=== PATIENT | female | born 1950 | race Asian ===

== ENCOUNTER → 2021-09-05 09:50 | Outpatient (CLI) | payer OTHER, SELFPAY ==
--- NOTE | 2021-09-05 | DI.MG.S_ITS ---
BILATERAL DIGITAL SCREENING MAMMOGRAM 3D/2D WITH CAD: 09/05/2021 CLINICAL: Routine screening. Comparison is made to exams dated: 10/03/2016 mammogram, 01/13/2020 mammogram, and 01/01/2018 mammogram - out side. The tissue of both breasts is extremely dense, which lowers the sensitivity of mammography. Current study was also evaluated with a Computer Aided Detection (CAD) system. No significant masses, calcifications, or other findings are seen in either breast. There has been no significant interval change. IMPRESSION: NEGATIVE There is no mammographic evidence of malignancy. A 1 year screening mammogram is recommended. This exam was interpreted at Station ID: [id number]. NOTE: For mammograms, a report in lay terms will be sent to the patient. Approximately 15% of breast malignancies will not be visualized mammographically. In the management of a palpable breast mass, a negative mammogram must not discourage biopsy of a clinically suspicious lesion. Electronically Signed By: Narciso botello/shirley:09/05/2021 12:41:30 letter sent: Normal Exam ACR BI-RADS Category 1: Negative [id number]
== END ==
PROVIDERS: PCP Family Medicine; Referring Provider Family Medicine; Visit Provider Family Medicine
DX: Z12.31 Encounter for screening mammogram for malignant neoplasm of breast (principal)
CPT/HCPCS: 77063; 77067

== ENCOUNTER → 2022-04-11 11:57 | Outpatient (CLI) | payer OTHER, SELFPAY ==
--- NOTE | 2022-04-11 | DI.RAD.S_ITS ---
PROCEDURE: XR CERVICAL SPINE 2V OR 3V INDICATIONS: neck pain TECHNIQUE: 3 view(s) of the cervical spine were acquired. COMPARISON: None. FINDINGS: Bones: No fractures or dislocations to the C7-T1 level. Degenerative endplate changes and loss of disc height at C5-6 level are seen. Mild degenerative endplate changes at C4-5 and C6-7 levels also seen. The lateral masses of C1 appear intact on the odontoid view. No suspicious bony lesions. Soft tissues: No prevertebral soft tissue swelling. 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 No fracture or dislocation. Dictated by: Huan Aaron M.D. on 04/11/2022 at 13:13 Approved by: Huan Aaron M.D. on 04/11/2022 at 13:13
== END ==
PROVIDERS: PCP Family Medicine; Referring Provider Family Medicine; Visit Provider Family Medicine
DX: G44.209 Tension-type headache, unspecified, not intractable (principal); M50.322 Other cervical disc degeneration at C5-C6 level
CPT/HCPCS: 72040

== ENCOUNTER → 2022-12-05 13:07 | Outpatient (CLI) | payer OTHER, SELFPAY ==
--- NOTE | 2022-12-05 | DI.MG.S_ITS ---
BILATERAL DIGITAL SCREENING MAMMOGRAM 3D/2D WITH CAD: 12/05/2022 CLINICAL: Routine screening. Comparison is made to exams dated: 09/05/2021 mammogram - [facility], 01/13/2020 mammogram, and 01/01/2018 mammogram - out side. Both breasts are extremely dense, which lowers the sensitivity of mammography (category d />75% glandular tissue). Current study was also evaluated with a Computer Aided Detection (CAD) system. No significant masses, calcifications, or other findings are seen in either breast. There has been no significant interval change. IMPRESSION: NEGATIVE There is no mammographic evidence of malignancy. A 1 year screening mammogram is recommended. Based on the Tyrer Cuzick model (a risk assessment model) the patient's lifetime risk is 12.2% and her 10 year risk is 7.8%. According to the ACR, ACS, and NCCN guidelines, an annual breast MRI exam along with mammogram is recommended if the patient's lifetime risk is 20% or greater. This exam was interpreted at Station ID: [id number]. NOTE: For mammograms, a report in lay terms will be sent to the patient. Approximately 15% of breast malignancies will not be visualized mammographically. In the management of a palpable breast mass, a negative mammogram must not discourage biopsy of a clinically suspicious lesion. Electronically Signed By: Gilberto aparicio/shirley:12/05/2022 17:50:55 letter sent: Normal Exam ACR BI-RADS Category 1: Negative [id number]
== END ==
PROVIDERS: PCP Family Medicine; Referring Provider Family Medicine; Visit Provider Family Medicine
DX: Z12.31 Encounter for screening mammogram for malignant neoplasm of breast (principal)
CPT/HCPCS: 77063; 77067

== ENCOUNTER → 2023-05-03 | Outpatient (CLI) | payer OTHER, SELFPAY ==
--- NOTE | 2023-05-03 12:38 | DI.RAD.S_ITS ---
Bone Density Report Name: RICARDO ZAMORA Age: 72 Sex: Female Ethnicity: Date of : 1950 Indication: postmenopausal; screening for osteoporosis; parental hip fracture; Referring Provider: SHAW ZUNIGA Study: Bone densitometry was performed. Exam Date: May 03, 2023 Accession number: [id number] Bone Density: Region BMD T-score Z-score Classification AP Spine(L1-L4) 0.999 -0.4 1.8 Normal Femoral Neck (Left) 0.676 -1.6 0.3 Osteopenia Total Hip (Left) 0.833 -0.9 0.7 Normal Femoral Neck (Right) 0.671 -1.6 0.3 Osteopenia Total Hip (Right) 0.805 -1.1 0.5 Osteopenia Total Hip Mean 0.819 -1.0 0.6 Normal World Health Organization criteria for BMD impression classify patients as: Normal (T-score at or above -1.0), Osteopenia (T-score between -1.0 and -2.5), or Osteoporosis (T-score at or below -2.5). 10-year Fracture Risk(1): Major Osteoporotic Fracture 17% Hip Fracture 4.6% Reported Risk Factors: [place] (), Neck BMD=0.671, BMI=26.5, parental fracture (1) FRAX(R) Version 3.08. Fracture probability calculated for an untreated patient. Fracture probability may be lower if the patient has received treatment. Impression: The patient has low bone mass, based on the Left Femoral Neck T-score. The patient has an estimated ten-year risk of hip fracture of 4.6% and an estimated ten-year risk of major fracture of 17%, based on the WHO FRAX algorithm. The patient has risk factors, including: parental hip fracture. Discussion: BONE DENSITY IS LOW AT ONE OR MORE SKELETAL SITES. THE PATIENT'S BMD AND CLINICAL RISK FACTORS CONTRIBUTE TO THIS PATIENT'S INCREASED RISK OF FRACTURE. This patient's lowest T-score is low at one or more skeletal sites. It meets the World Health Organization's (WHO) criteria for low bone mass (T-score between -1.0 and -2.5). The patient's 10-year risk of hip fracture as calculated by FRAX exceeds the threshold where pharmacological therapy is recommended by the National Osteoporosis Foundation (NOF). However, all treatment decisions require clinical judgment and consideration of individual patient factors, including patient preferences, comorbidities, previous drug use, risk factors not captured in the FRAX model (e.g., frailty, falls, vitamin D deficiency, increased bone turnover, interval significant decline in bone density) and possible under or overestimation of fracture risk by FRAX. The patient should follow a healthful lifestyle (good nutrition with adequate calcium and vitamin D, and appropriate weight-bearing exercise). Follow-Up: Consider a repeat BMD and Vertebral Fracture Assessment (VFA) exam in 2 years or sooner if medically necessary, to reassess this patient's status. Reported by: MAGALI DODGE M.D. on 05/03/2023 1:39:00 PM.
== END ==
LOC: RAD 12:38
PROVIDERS: PCP Family Medicine; Referring Provider Family Medicine; Visit Provider Family Medicine
DX: Z78.0 Asymptomatic menopausal state (principal); M85.852 Other specified disorders of bone density and structure, left thigh
CPT/HCPCS: 77080

== ENCOUNTER → 2023-07-01 16:16 | Outpatient (CLI) | payer OTHER, SELFPAY ==
--- NOTE | 2023-07-01 | DI.RAD.S_ITS ---
PROCEDURE: XR CERVICAL SPINE 2V OR 3V INDICATIONS: NECK PAIN TECHNIQUE: 3 view(s) of the cervical spine were acquired. COMPARISON: [facility], CR, XR CERVICAL SPINE 2V OR 3V, 04/11/2022, 12:02. FINDINGS: Bones: No fractures or dislocations to the T1 level. The lateral masses of C1 appear intact on the odontoid view. No suspicious bony lesions. Mild cervical spondylosis with mid cervical facet arthropathy. There is also mild disc height loss and uncovertebral joint hypertrophy at C5-C6. Findings are not significantly changed. Soft tissues: No prevertebral soft tissue swelling. IMPRESSION: No significant change. Mild cervical spondylitic change. Dictated by: Gerald Yee M.D. on 07/01/2023 at 17:25 Approved by: Gerald Yee M.D. on 07/01/2023 at 17:26
== END ==
PROVIDERS: PCP Family Medicine; Referring Provider Family Medicine; Visit Provider Family Medicine
DX: M47.812 Spondylosis without myelopathy or radiculopathy, cervical region (principal)
CPT/HCPCS: 72040

== ENCOUNTER → 2023-07-29 19:01 | Outpatient (CLI) | payer OTHER, SELFPAY | PROVIDERS: PCP Family Medicine; Visit Provider Nurse Practitioner Family | DX: R35.0 Frequency of micturition (principal) | CPT/HCPCS: 87077; 87086; 87186 ==

== ENCOUNTER → 2024-02-12 10:51 | Outpatient (CLI) | payer OTHER, SELFPAY ==
--- NOTE | 2024-02-12 10:52 | DI.MG.S_ITS ---
BILATERAL DIGITAL SCREENING MAMMOGRAM 3D/2D WITH CAD: 02/12/2024 CLINICAL: Routine screening. Comparison is made to exams dated: 12/05/2022 mammogram, 09/05/2021 mammogram - [facility], 01/13/2020 mammogram, 01/01/2018 mammogram, and 10/25/2016 mammogram - out side. The breasts are extremely dense, which lowers the sensitivity of mammography (category d />75% glandular tissue). Current study was also evaluated with a Computer Aided Detection (CAD) system. No significant masses, calcifications, or other findings are seen in either breast. There has been no significant interval change. IMPRESSION: NEGATIVE There is no mammographic evidence of malignancy. A 1 year screening mammogram is recommended. Based on the Tyrer Cuzick model (a risk assessment model) the patient's lifetime risk is 10.9% and her 10 year risk is 8.2%. According to the ACR, ACS, and NCCN guidelines, an annual breast MRI exam along with mammogram is recommended if the patient's lifetime risk is 20% or greater. This exam was interpreted at Station ID: [id number]. NOTE: For mammograms, a report in lay terms will be sent to the patient. Approximately 15% of breast malignancies will not be visualized mammographically. In the management of a palpable breast mass, a negative mammogram must not discourage biopsy of a clinically suspicious lesion. Electronically Signed By: Windy Carrion M.D., Ph.D. cali/shirley:02/13/2024 09:25:41 letter sent: Normal Exam ACR BI-RADS Category 1: Negative
== END ==
PROVIDERS: PCP Family Medicine; Referring Provider Family Medicine; Visit Provider Family Medicine
DX: Z12.31 Encounter for screening mammogram for malignant neoplasm of breast (principal); R92.343 Mammographic extreme density, bilateral breasts
CPT/HCPCS: 77063; 77067

== ENCOUNTER → 2024-04-22 13:17 | Outpatient (CLI) | payer MEDICARE, SELFPAY ==
--- NOTE | 2024-04-22 13:24 | DI.RAD.S_ITS ---
PROCEDURE: XR KNEE RT 1TO2V INDICATIONS: Pain in LT Shoulder/Pain in RT Knee/Osteoarthritis TECHNIQUE: 2 views of the knee were acquired. COMPARISON: None. FINDINGS: Bones: No fractures or dislocations. Minimal degenerative changes. No suspicious bony lesions. Soft tissues: Probable small joint effusion. No suspicious soft tissue calcifications. IMPRESSION: Minimal degenerative changes at the right knee appreciated. If clinically indicated MRI could be considered for further evaluation. Dictated by: Gilberto Man M.D. on 04/23/2024 at 9:55 Approved by: Gilberto Man M.D. on 04/23/2024 at 9:56
--- NOTE | 2024-04-22 13:24 | DI.RAD.S_ITS ---
PROCEDURE: XR SHOULDER LT MIN 2V INDICATIONS: Pain in LT Shoulder/Pain in RT Knee/Osteoarthritis TECHNIQUE: 3 views of the shoulder were acquired. COMPARISON: None. FINDINGS: Bones: No fractures or dislocations. Moderate degenerative changes at the acromioclavicular joint. Mild degenerative changes seen at the glenohumeral joint. No suspicious bony lesions. Visualized ribs appear intact. Soft tissues: No suspicious soft tissue calcifications. IMPRESSION: Mild moderate left shoulder DJD. Dictated by: Gilberto Man M.D. on 04/23/2024 at 9:53 Approved by: Gilberto Man M.D. on 04/23/2024 at 9:54
== END ==
PROVIDERS: PCP Student in an Organized Health Care Education/Training Program; Referring Provider Student in an Organized Health Care Education/Training Program; Visit Provider Student in an Organized Health Care Education/Training Program
DX: M19.012 Primary osteoarthritis, left shoulder; M25.461 Effusion, right knee; M25.512 Pain in left shoulder; M25.561 Pain in right knee
CPT/HCPCS: 73030; 73560

== ENCOUNTER 2024-06-19 13:45 | Outpatient (RCR) | payer MEDICARE, SELFPAY ==
--- NOTE | 2024-05-18 15:55 | PT.OIE ---
Current Diagnoses Osteoarthritis of knee, unspecified (05/18/24) Unspecified osteoarthritis, unspecified site (05/18/24) Pain in left shoulder (05/18/24) Pain in right knee (05/18/24) Stiffness of left shoulder, not elsewhere classified (05/18/24) Stiffness of right knee, not elsewhere classified (05/18/24) Difficulty in walking, not elsewhere classified (05/18/24) Other abnormalities of gait and mobility (05/18/24) Weakness (05/18/24) Visit Care Team Role Provider Type Reyes Pichardo MD Attending Provider Non-Staff Family Provider Primary Care Provider Referring Provider Specialty: General Surgery Address: [address] [place] [address], [id number] Email: Physical Therapy Initial Evaluation PT-OP-A Visit Information Start: 05/15/24 15:54 Freq: Status: Active Protocol: Document 05/18/24 09:46 NM (Rec: 05/18/24 11:15 NM [id number]) Out-Patient Physical Therapy Visit Information Visit Information Visit Type Initial Evaluation Visit Start Time 09:48 Visit Stop Time 10:30 Visit Number 1 Evaluation Information Evaluation Date 05/18/24 Precautions Precautions osteopenia PT-OP-B Current Condition Start: 05/15/24 15:54 Freq: Status: Active Protocol: Document 05/18/24 09:46 NM (Rec: 05/18/24 11:15 NM [id number]) Current Condition History of Current Condition Onset Date March 2024 Current Complaints pain in R knee History of Current Condition Pt reports that she woke up after with L shoulder pain and R knee pain. Reports got the flu on day; reports pain worse with illness but has improved overall since no longer sick. Minimal knee pain prior to illness in March. She reports that she has less pain with L shoulder with exercise, better. She does report that tingling/numbness from shoulder into her hand, specifically her thumb and the 2nd figner. Gets in bed sleeping, usually on L shoulder. No changes to temperature or sensation, or strength. Hx of L frozen shoulder (2009); no other injuries or recurrences since that episode. Pt reports that she always gets a tingling in that L shoulder after illness/shot since she had frozen shoulder. Occasional neck pain, headaches. She reports R knee hurts as well States that it will occasionally locks or feels like it stiffens (denies catching, locking without being able to move knee, or knee giving out), worse with sitting for long time or inactivity. Since started limping, she reports that her R hip starts to hurt too. Walks 1 mi ea morning and evening. Has been wearing a patellar brace but unsure if she should; she has hx of patellar pain on same side since 2013 (with hula). Trouble with carrying heavy things (15-20#), getting up/ off floor, kneeling, getting in/out of car. Worse in morning then late evening. No numbness/tingling. Treatment Goals Patient/Caregiver Goals pt more concerned about knee/ shoulder PT-OP-C Subjective Start: 05/15/24 15:54 Freq: Status: Active Protocol: Document 05/18/24 09:46 NM (Rec: 05/18/24 11:15 NM [id number]) OP-PT Subjective Patient Comments Patient Comments Pt agrees to participate in PT evaluation Patient Questionnaires Lower Extremity Functional Scale LEFS Score 38/80 Quick Dash- Upper Extremity Quick Dash UE Score 27.3% OP-PT Pain Assessment Location L shoulder Pain Location Details under L scapula Intensity 2 Scale Used Numeric (0 - 10) Description Aching Description- Other prn numbness/tingling Radiating Location to elbow and wrist; lateral arm, hand Pain Aggravating Factors Position,ADL's Pain Alleviating Factors Cold,Heat,Exercise R knee Pain Location Details medial knee near joint line Intensity 5 Scale Used Numeric (0 - 10) Description Aching,Dull Radiating Location none Variations/Patterns worse in am, then again in pm; better with warm up Pain Aggravating Factors Position,Exercise,Standing, Sitting,Walking Other Pain Aggravating Factors down stairs; sleeping; STS Pain Alleviating Factors Cold,Heat,Position Other Pain Alleviating Factors sleeps on back c/ leg crossed; movement Home Pain Medication Use Pain Medications Used was on tumeric, movefree PT-OP-E Functional Tests Start: 05/15/24 15:54 Freq: Status: Active Protocol: Document 05/18/24 09:46 NM (Rec: 05/18/24 11:15 NM [id number]) Functional Tests Tommyey's Scratch Test Action 1- Left post cuff Action 1- Right post cuff Action 2- Left T5 Action 2- Right T4 Action 3- Left T8 Action 3- Right T8 Five Times Sit to Stand Test Score 14 Comments inc knee pain with reps PT-OP-F Manual Assessment Start: 05/15/24 15:54 Freq: Status: Active Protocol: Document 05/18/24 09:46 NM (Rec: 05/18/24 11:15 NM [id number]) Manual Assessments Soft Tissue Assessment Soft Tissue Mobility Assessment Restrictions of cervicothoracic paraspinals, pec, rotator cuff, periscapulars Restrictions of R adductors, quad, hip flexors, and hamstrings Joint Mobility Assessment Joint Mobility Assessment L shoulder: AROM and PROM similar, limitations at scapular and GHJ. cervical spine restrictions on L side likely also reduce muscle length R knee: decreased patellar mobility compared to contralateral limb, pain with flex<>ext transition, no pain with overpressure into extension but mildly painful overpressure into flexion PT-OP-G Mobility & Gait Start: 05/15/24 15:54 Freq: Status: Active Protocol: Document 05/18/24 09:46 NM (Rec: 05/18/24 11:15 NM [id number]) OP Gait Assessment Gait Gait Assistance Required: Independent Distance (Feet) 150 Assistive Devices Assistive Device None Gait Deviations General Gait Pattern Antalgic Comments Gait Comments decreased trunk rotation. slight limp with R stance PT-OP-J Posture/Palpation/Skin Start: 05/15/24 15:54 Freq: Status: Active Protocol: Document 05/18/24 09:46 NM (Rec: 05/18/24 11:15 NM [id number]) Posture Evaluation Position Standing Head/C-Spine Posture Forward Head Shoulder Posture (L) Rounded,(R) Rounded,(L) Forward,(R) Forward Scapula Posture (L) Retracted,(L) Elevated Pelvis Posture Anteriorly Tilted Weight Distribution Weight Shifted Left Hip Posture (L) Externally Rotated,(R) Externally Rotated Knee Posture (L) Genu Valgus,(R) Genu Valgus Palpation Assessment Location L shoulder Palpation Details tenderness along L scapular border tightness and restriction of periscapulars, levator scapula , trapezius, pec, posterior cuff R knee Palpation Details Tenderness along medial joint line, medial knee above and below joint line, distal adductors no tenderness along pes anserine, patellar or quad tendon, patella mild tenderness along posterior hip near SIJ PT-OP-K Range of Motion Start: 05/15/24 15:54 Freq: Status: Active Protocol: Document 05/18/24 09:46 NM (Rec: 05/18/24 11:15 NM [id number]) Cervical Spine Range of Motion Cervical Spine Active Degrees Flexion 30 Extension 30 Rotation Left 45 Rotation Right 55 Lateral Flexion Left 20 Lateral Flexion Right 20 Comments crepitus, stiffness, no scapular pain L rot inc shoulder blade pain Shoulder Goniometric Range of Motion Shoulder Right Flexion 160 Extension 40 Abduction 170 External Rotation at 90 degrees 80 Abduction Left Flexion 150 Extension 50 Abduction 170 External Rotation at 90 degrees 75 Abduction Comments compensated with trunk extension Knee Goniometric Range of Motion Knee Right Flexion Active (degrees) 122 Extension Active (degrees) 5 Comments pain with flex and ext Left Flexion Active (degrees) 130 Extension Active (degrees) 2 PT-OP-L Special Tests Start: 05/15/24 15:54 Freq: Status: Active Protocol: Document 05/18/24 09:46 NM (Rec: 05/18/24 11:15 NM [id number]) Special Tests Cervical Spine Special Tests Traction Test Results - Spurling's Test Test Results - Knee Special Tests Patellar Grind Test Test Results + Lauryn's Test Results - Alisa Test Test Results - Varus Test Results - Comments 0 and 25 deg Valgus Test Results - Comments 0 and 25 deg Neural Special Tests- Upper Body Upper Limb Tension Test Test Results + Comments median n. PT-OP-M Strength Start: 05/15/24 15:54 Freq: Status: Active Protocol: Document 05/18/24 09:46 NM (Rec: 05/18/24 11:15 NM [id number]) Shoulder Strength Shoulder Manual Muscle Testing Right Flexion 4+ Good+ Abduction (C5) 4+ Good+ External Rotation 4+ Good+ Internal Rotation 4+ Good+ Left Flexion 4 Good Abduction (C5) 4 Good External Rotation 4 Good Internal Rotation 4 Good Comments no pain with resisted testing Hip Strength Hip Manual Muscle Testing Right Flexion (L2) 4 Good Extension (S1) 4 Good Abduction 4 Good Adduction 4 Good Left Flexion (L2) 4+ Good+ Extension (S1) 4 Good Abduction 4 Good Adduction 4+ Good+ Knee Strength Knee Manual Muscle Testing Right Flexion (S2) 4- Good- Extension (L3) 4- Good- Comments pain with resisted ext and flex Left Flexion (S2) 4+ Good+ Extension (L3) 4+ Good+ PT-OP-Q Treatments Start: 05/15/24 15:54 Freq: Status: Active Protocol: Document 05/18/24 09:46 NM (Rec: 05/18/24 11:15 NM [id number]) Therapeutic Exercises Supine Exercises Straight Leg Raise Supine Exercise Name HEP Side right Equipment Used hooklying Reps/Minutes 10 Comments cued for quad set; pain free; maintains good contraction quad set Supine Exercise Name HEP Side right Equipment Used towel roll under knee Reps/Minutes 15x3 Comments cued submaximal, pain free; ankle lifts off w/ reps heel slide Supine Exercise Name HEP Side right Equipment Used pillow case on foot Reps/Minutes 10 Other Exercises pec stretch Other Exercise Name 90/90 at door- HEP Side bilateral Equipment Used staggered stance Reps/Minutes 60 Comments pain free; cued for form Self-Care/Home Management Treatment Education Other Education Recommended against use of knee brace at this time, but pt may benefit from knee sleeve for increased tactile input and pain management during exercise without limiting motion PT-OP-T Assessment and Plan Start: 05/15/24 15:54 Freq: Status: Active Protocol: Document 05/18/24 09:46 NM (Rec: 05/18/24 11:15 NM [id number]) Physical Therapy Assessment Rehab Potential Rehabilitation Potential Good Evaluation Complexity Number of Personal Factors/Comorbidities 3 or More Number of Body Systems Impaired 3 Clinical Presentation at Evaluation Stable Impairments Impairments Activity Tolerance,Balance, Functional Activities, Functional Mobility,Gait, Integument,Pain,Posture,ROM, Sensation,Soft Tissue Mobility ,Strength,Transfers,Vestibular Other Concerns Age Related Concerns PMH: arthritis, headaches, neck pain, osteopenia, thyroid disorder. Hx of adhesive capsulitis L shoulder Barriers to Rehabilitation Pt is wanting to focus primarily on treating her R knee over her L shoulder Goals Four Impairment limitations in L shoulder flexion AROM 150 deg, CS rot L 45 deg Short Term Goal (STG) Pt will increase L shoulder flexion >150 deg AROM in order to improve ability to reach, lift, and carry objects during ADLs. STG Duration 07/03/24 Shelter Goal (LTG) If appropriate, pt will increase B cervical spine rotation >55 deg in order to improve visual scanning for driving and decreased soft tissue limitations for L shoulder ROM LTG Duration 07/17/24 Three Impairment pain with squats, STS, kneeling, floor transfers Short Term Goal (STG) Pt will increase R knee strength globally to at least 4/5 MMT and R hip strength globally ot 4+5/MMT to improve ability to perform transfers STG Duration 07/03/24 Contract Serviceman Goal (LTG) Pt will report <3/10 R knee pain with floor transfers with or without UE assist and/or kneeling in order to be able to perform housework LTG Duration 07/17/24 Two Impairment pain with ambulation; limitations in R knee/hip strength Shelter Goal (LTG) Pt will be able to ambulate daily with R knee pain <3/10 with minimal deviations LTG Duration 07/17/24 One Impairment R knee ROM limited: 122 deg flex, lacking 5 deg ext Contract Serviceman Goal (LTG) Pt will increase R knee flexion AROM >125 deg and R knee extension to lacking 2 deg or less in order to improve ROM for transfers and gait LTG Duration 07/17/24 Assessment Summary Assessment Pt is a 73 y.o. presenting with R knee pain and L shoulder pain beginning in March 2024 following an illness with the flu. Pt reports that symptoms have improved overall but but L scapular pain is ongoing along with minimal changes in R knee pain. Hx of adhesive capsulitis to L shoulder and recent onset of numbness/ tingling into thumb and 2nd finger. Shoulder symptoms are reproduced with median n. tension testing and cervical spine ROM; no reproduction with spurling's test or reduction with traction. Pt has several soft tissue restrictions and postural restrictions that further influence symptoms. Pt is wanting to focus on her R knee . Pt has limitations in both R knee ROM and strength, in addition to pain especially with palpation of medial joint line compared to L knee. No knee ligamentous instability with testing. However, limitations in R knee joint and patellar mobility. Impairments in ROM, strength, transfers, gait, stairs, activity tolerance, and ability to perform ADLs/IALs. PT educated pt on exam findings and plan of care. Pt would benefit from skilled PT for improved symptom and pain management in addition to improved ADL/IADLs and activity tolerance. Physical Therapy Plan Frequency and Duration Frequency of Treatment 2x/Week Duration of treatment (weeks) 8 Plan of Care Start Date 05/18/24 Plan of Care End Date 07/17/24 Therapeutic Interventions Therapeutic Interventions Balance Training,Canalithic Repositioning,Gait Training, Home Exercise Program,Joint Mobilizations,Manual Therapy, Neuromuscular Re-education, Orthotic/Prosthetic Management ,Patient/Caregiver Education, Self-Care/Home Management, Sensory Integration,Soft Tissue Mobilization,Taping, Therapeutic Activities, Therapeutic Exercises, Vestibular Rehabilitation Modalities Cold Pack/Ice Massage,Electric Stimulation,Hot Packs, Ultrasound,Vasopneumatic Devices Other Therapeutic Interventions No grade IV mobilizations due to osteopenia Next Visit Focus/Plan Next Note Type Treatment Note Next Visit Plan review HEP R knee: knee mobilizations, STM, HS stretch, quad stretch, TFL stretch, TKE with band, side steps vs hip abd/ext standing, partial squat L shoulder: cervical spine baldo, retraction, scapular mobilizations, GHJ mobilizations, STM, periscapular activation, TS rot and ext
--- NOTE | 2024-05-20 13:23 | PT.OTN ---
Current Diagnoses Osteoarthritis of knee, unspecified (05/20/24) Unspecified osteoarthritis, unspecified site (05/20/24) Pain in left shoulder (05/20/24) Pain in right knee (05/20/24) Stiffness of left shoulder, not elsewhere classified (05/20/24) Stiffness of right knee, not elsewhere classified (05/20/24) Difficulty in walking, not elsewhere classified (05/20/24) Other abnormalities of gait and mobility (05/20/24) Weakness (05/20/24) Physical Therapy Treatment Note PT-OP-A Visit Information Start: 05/15/24 15:54 Freq: Status: Active Protocol: Document 05/20/24 11:36 NM (Rec: 05/20/24 12:21 NM [id number]) Out-Patient Physical Therapy Visit Information Visit Information Visit Type Treatment Note Visit Start Time 11:37 Visit Stop Time 12:15 Visit Number 2 Evaluation Information Evaluation Date 05/18/24 Precautions Precautions osteopenia PT-OP-B Current Condition Start: 05/15/24 15:54 Freq: Status: Active Protocol: Document 05/18/24 09:46 NM (Rec: 05/18/24 11:15 NM [id number]) Current Condition History of Current Condition Onset Date March 2024 Current Complaints pain in R knee History of Current Condition Pt reports that she woke up after [place] with L shoulder pain and R knee pain. Reports got the flu on day; reports pain worse with illness but has improved overall since no longer sick. Minimal knee pain prior to illness in March. She reports that she has less pain with L shoulder with exercise, better. She does report that tingling/numbness from shoulder into her hand, specifically her thumb and the 2nd figner. Gets in bed sleeping, usually on L shoulder. No changes to temperature or sensation, or strength. Hx of L frozen shoulder (2009); no other injuries or recurrences since that episode. Pt reports that she always gets a tingling in that L shoulder after illness/shot since she had frozen shoulder. Occasional neck pain, headaches. She reports R knee hurts as well States that it will occasionally locks or feels like it stiffens (denies catching, locking without being able to move knee, or knee giving out), worse with sitting for long time or inactivity. Since started limping, she reports that her R hip starts to hurt too. Walks 1 mi ea morning and evening. Has been wearing a patellar brace but unsure if she should; she has hx of patellar pain on same side since 2013 (with hula). Trouble with carrying heavy things (15-20#), getting up/ off floor, kneeling, getting in/out of car. Worse in morning then late evening. No numbness/tingling. Treatment Goals Patient/Caregiver Goals pt more concerned about knee/ shoulder PT-OP-C Subjective Start: 05/15/24 15:54 Freq: Status: Active Protocol: Document 05/20/24 11:36 NM (Rec: 05/20/24 12:21 NM [id number]) OP-PT Subjective Patient Comments Patient Comments Pt reports that she tried her exercises, reports tight afterward but states that do make give her pain. She reports 2/10 pain in sitting, 5/10 with transition to movement. PT-OP-E Functional Tests Start: 05/15/24 15:54 Freq: Status: Active Protocol: Document 05/18/24 09:46 NM (Rec: 05/18/24 11:15 NM [id number]) Functional Tests Apley's Scratch Test Action 1- Left post cuff Action 1- Right post cuff Action 2- Left T5 Action 2- Right T4 Action 3- Left T8 Action 3- Right T8 Five Times Sit to Stand Test Score 14 Comments inc knee pain with reps PT-OP-F Manual Assessment Start: 05/15/24 15:54 Freq: Status: Active Protocol: Document 05/18/24 09:46 NM (Rec: 05/18/24 11:15 NM [id number]) Manual Assessments Soft Tissue Assessment Soft Tissue Mobility Assessment Restrictions of cervicothoracic paraspinals, pec, rotator cuff, periscapulars Restrictions of R adductors, quad, hip flexors, and hamstrings Joint Mobility Assessment Joint Mobility Assessment L shoulder: AROM and PROM similar, limitations at scapular and GHJ. cervical spine restrictions on L side likely also reduce muscle length R knee: decreased patellar mobility compared to contralateral limb, pain with flex<>ext transition, no pain with overpressure into extension but mildly painful overpressure into flexion PT-OP-G Mobility & Gait Start: 05/15/24 15:54 Freq: Status: Active Protocol: Document 05/18/24 09:46 NM (Rec: 05/18/24 11:15 NM [id number]) OP Gait Assessment Gait Gait Assistance Required: Independent Distance (Feet) 150 Assistive Devices Assistive Device None Gait Deviations General Gait Pattern Antalgic Comments Gait Comments decreased trunk rotation. slight limp with R stance PT-OP-J Posture/Palpation/Skin Start: 05/15/24 15:54 Freq: Status: Active Protocol: Document 05/18/24 09:46 NM (Rec: 05/18/24 11:15 NM [id number]) Posture Evaluation Position Standing Head/C-Spine Posture Forward Head Shoulder Posture (L) Rounded,(R) Rounded,(L) Forward,(R) Forward Scapula Posture (L) Retracted,(L) Elevated Pelvis Posture Anteriorly Tilted Weight Distribution Weight Shifted Left Hip Posture (L) Externally Rotated,(R) Externally Rotated Knee Posture (L) Genu Valgus,(R) Genu Valgus Palpation Assessment Location L shoulder Palpation Details tenderness along L scapular border tightness and restriction of periscapulars, levator scapula , trapezius, pec, posterior cuff R knee Palpation Details Tenderness along medial joint line, medial knee above and below joint line, distal adductors no tenderness along pes anserine, patellar or quad tendon, patella mild tenderness along posterior hip near SIJ PT-OP-K Range of Motion Start: 05/15/24 15:54 Freq: Status: Active Protocol: Document 05/18/24 09:46 NM (Rec: 05/18/24 11:15 NM [id number]) Cervical Spine Range of Motion Cervical Spine Active Degrees Flexion 30 Extension 30 Rotation Left 45 Rotation Right 55 Lateral Flexion Left 20 Lateral Flexion Right 20 Comments crepitus, stiffness, no scapular pain L rot inc shoulder blade pain Shoulder Goniometric Range of Motion Shoulder Right Flexion 160 Extension 40 Abduction 170 External Rotation at 90 degrees 80 Abduction Left Flexion 150 Extension 50 Abduction 170 External Rotation at 90 degrees 75 Abduction Comments compensated with trunk extension Knee Goniometric Range of Motion Knee Right Flexion Active (degrees) 122 Extension Active (degrees) 5 Comments pain with flex and ext Left Flexion Active (degrees) 130 Extension Active (degrees) 2 PT-OP-L Special Tests Start: 05/15/24 15:54 Freq: Status: Active Protocol: Document 05/18/24 09:46 NM (Rec: 05/18/24 11:15 NM [id number]) Special Tests Cervical Spine Special Tests Traction Test Results - Spurling's Test Test Results - Knee Special Tests Patellar Grind Test Test Results + Lauryn's Test Results - Alisa Test Test Results - Varus Test Results - Comments 0 and 25 deg Valgus Test Results - Comments 0 and 25 deg Neural Special Tests- Upper Body Upper Limb Tension Test Test Results + Comments median n. PT-OP-M Strength Start: 05/15/24 15:54 Freq: Status: Active Protocol: Document 05/18/24 09:46 NM (Rec: 05/18/24 11:15 NM [id number]) Shoulder Strength Shoulder Manual Muscle Testing Right Flexion 4+ Good+ Abduction (C5) 4+ Good+ External Rotation 4+ Good+ Internal Rotation 4+ Good+ Left Flexion 4 Good Abduction (C5) 4 Good External Rotation 4 Good Internal Rotation 4 Good Comments no pain with resisted testing Hip Strength Hip Manual Muscle Testing Right Flexion (L2) 4 Good Extension (S1) 4 Good Abduction 4 Good Adduction 4 Good Left Flexion (L2) 4+ Good+ Extension (S1) 4 Good Abduction 4 Good Adduction 4+ Good+ Knee Strength Knee Manual Muscle Testing Right Flexion (S2) 4- Good- Extension (L3) 4- Good- Comments pain with resisted ext and flex Left Flexion (S2) 4+ Good+ Extension (L3) 4+ Good+ PT-OP-Q Treatments Start: 05/15/24 15:54 Freq: Status: Active Protocol: Document 05/20/24 11:36 NM (Rec: 05/20/24 12:21 NM [id number]) Therapeutic Exercises Supine Exercises mahamed stretch Supine Exercise Name HEP- modified Side bilateral Reps/Minutes 60 ea Comments good stretch; edu to perform off end of bed vs EOB figure 4 stretch Supine Exercise Name trialed in PT Side bilateral Reps/Minutes 30 ea Comments tightness medial knee R, pain pes anserine towel gapping mobilization Supine Exercise Name knee flexion- HEP Side left Equipment Used towel Reps/Minutes 10 Comments no pain heel slide Supine Exercise Name HEP review Side right Resistance AROM Reps/Minutes 10 Comments post manual; 130 deg but medial knee tightness Standing Exercises TKE Standing Exercise Name c/ ball at wall- HEP Side right Equipment Used orange ball Reps/Minutes 2x10 x 3 Comments pain free; trialed band but d/ c d/t pain side stepping Standing Exercise Name trialed Side bilateral Resistance level 1 band thighs Reps/Minutes 10 ft ea Comments reports mild pain at knee c/ exercise Manual Therapy Treatment Consent Patient gave verbal consent for manual Yes treatment Soft Tissue Mobilization R knee Body Location pes anserine, hip flexors, quad, calf, HS Comments Tenderness at medial knee, sharmila pes anserine. Joint Mobilizations R knee Joint patellar, tibiofemoral Direction med/lat, inf; PA and AP c/ slight distraction Reps/Duration 2x30 ea Comments improved ROM to 130 deg flex post manual. monitored for pain. none with PA/AP mobilization PT-OP-T Assessment and Plan Start: 05/15/24 15:54 Freq: Status: Active Protocol: Document 05/20/24 11:36 NM (Rec: 05/20/24 12:21 NM [id number]) Physical Therapy Assessment Goals Four Impairment limitations in L shoulder flexion AROM 150 deg, CS rot L 45 deg Short Term Goal (STG) Pt will increase L shoulder flexion >150 deg AROM in order to improve ability to reach, lift, and carry objects during ADLs. STG Duration 07/03/24 Clinical Program Consultant Goal (LTG) If appropriate, pt will increase B cervical spine rotation >55 deg in order to improve visual scanning for driving and decreased soft tissue limitations for L shoulder ROM LTG Duration 07/17/24 Three Impairment pain with squats, STS, kneeling, floor transfers Short Term Goal (STG) Pt will increase R knee strength globally to at least 4/5 MMT and R hip strength globally ot 4+5/MMT to improve ability to perform transfers STG Duration 07/03/24 Group Home Goal (LTG) Pt will report <3/10 R knee pain with floor transfers with or without UE assist and/or kneeling in order to be able to perform housework LTG Duration 07/17/24 Two Impairment pain with ambulation; limitations in R knee/hip strength Group Home Goal (LTG) Pt will be able to ambulate daily with R knee pain <3/10 with minimal deviations LTG Duration 07/17/24 One Impairment R knee ROM limited: 122 deg flex, lacking 5 deg ext Clinical Program Consultant Goal (LTG) Pt will increase R knee flexion AROM >125 deg and R knee extension to lacking 2 deg or less in order to improve ROM for transfers and gait LTG Duration 07/17/24 Assessment Summary Assessment Pt reports that she has increased tightnes along R medial knee at end of session. Reports no increased pain. She has 130 deg R knee flexion post manual treatment. Initiated manual treatment to improve soft tissue restrictions and joint mobility. Good carryover for knee flexion with towel gapping. Trialed TKE with band but pt has increased discomfort at medial knee; improved with ball at wall. Minimal cueing for form to limit hip compensations. Poor tolerance for side steps, will trial sidelying vs standing hip strengthening in future. Trialed hip stretching to improve global mobility as has restrictions at pes anserine. Pt would continue to benefit from skilled PT for progressive R knee mobility to improve ability to perform ADLs/IADLs. Physical Therapy Plan Frequency and Duration Frequency of Treatment 2x/Week Duration of treatment (weeks) 8 Plan of Care Start Date 05/18/24 Plan of Care End Date 07/17/24 Therapeutic Interventions Therapeutic Interventions Balance Training,Canalithic Repositioning,Gait Training, Home Exercise Program,Joint Mobilizations,Manual Therapy, Neuromuscular Re-education, Orthotic/Prosthetic Management ,Patient/Caregiver Education, Self-Care/Home Management, Sensory Integration,Soft Tissue Mobilization,Taping, Therapeutic Activities, Therapeutic Exercises, Vestibular Rehabilitation Modalities Cold Pack/Ice Massage,Electric Stimulation,Hot Packs, Ultrasound,Vasopneumatic Devices Other Therapeutic Interventions No grade IV mobilizations due to osteopenia Next Visit Focus/Plan Next Note Type Treatment Note Next Visit Plan trial standing abd w/o band vs s/l abd for strength R knee: knee mobilizations, STM, HS stretch, quad stretch, TFL stretch, TKE with band, side steps vs hip abd/ext standing, partial squat L shoulder: cervical spine baldo, retraction, scapular mobilizations, GHJ mobilizations, STM, periscapular activation, TS rot and ext
--- NOTE | 2024-05-25 12:34 | PT.OTN ---
Current Diagnoses Osteoarthritis of knee, unspecified (05/25/24) Unspecified osteoarthritis, unspecified site (05/25/24) Pain in left shoulder (05/25/24) Pain in right knee (05/25/24) Stiffness of left shoulder, not elsewhere classified (05/25/24) Stiffness of right knee, not elsewhere classified (05/25/24) Difficulty in walking, not elsewhere classified (05/25/24) Other abnormalities of gait and mobility (05/25/24) Weakness (05/25/24) Physical Therapy Treatment Note PT-OP-A Visit Information Start: 05/15/24 15:54 Freq: Status: Active Protocol: Document 05/25/24 10:38 AB (Rec: 05/25/24 12:33 AB [id number]) Out-Patient Physical Therapy Visit Information Visit Information Visit Type Treatment Note Visit Start Time 10:48 Visit Stop Time 11:33 Visit Number 3 Number of TRANSFORMATION COACH Visits 1 Evaluation Information Evaluation Date 05/18/24 Precautions Precautions osteopenia PT-OP-B Current Condition Start: 05/15/24 15:54 Freq: Status: Active Protocol: Document 05/18/24 09:46 NM (Rec: 05/18/24 11:15 NM [id number]) Current Condition History of Current Condition Onset Date March 2024 Current Complaints pain in R knee History of Current Condition Pt reports that she woke up after [place] with L shoulder pain and R knee pain. Reports got the flu on day; reports pain worse with illness but has improved overall since no longer sick. Minimal knee pain prior to illness in March. She reports that she has less pain with L shoulder with exercise, better. She does report that tingling/numbness from shoulder into her hand, specifically her thumb and the 2nd figner. Gets in bed sleeping, usually on L shoulder. No changes to temperature or sensation, or strength. Hx of L frozen shoulder (2009); no other injuries or recurrences since that episode. Pt reports that she always gets a tingling in that L shoulder after illness/shot since she had frozen shoulder. Occasional neck pain, headaches. She reports R knee hurts as well States that it will occasionally locks or feels like it stiffens (denies catching, locking without being able to move knee, or knee giving out), worse with sitting for long time or inactivity. Since started limping, she reports that her R hip starts to hurt too. Walks 1 mi ea morning and evening. Has been wearing a patellar brace but unsure if she should; she has hx of patellar pain on same side since 2013 (with hula). Trouble with carrying heavy things (15-20#), getting up/ off floor, kneeling, getting in/out of car. Worse in morning then late evening. No numbness/tingling. Treatment Goals Patient/Caregiver Goals pt more concerned about knee/ shoulder PT-OP-C Subjective Start: 05/15/24 15:54 Freq: Status: Active Protocol: Document 05/25/24 10:38 AB (Rec: 05/25/24 12:33 AB [id number]) OP-PT Subjective Patient Comments Patient Comments Patient reports knee feels less locked when she stands up , shoulder barely bothers at all. Patient reports right knee pain 2/10 start of session, reports it is painful when lying in bend and when she when she gets up to walk, once she gets going it feels better. AROM L shoulder flexion 148 deg , right knee 0 to 131 deg start of session. PT-OP-E Functional Tests Start: 05/15/24 15:54 Freq: Status: Active Protocol: Document 05/18/24 09:46 NM (Rec: 05/18/24 11:15 NM [id number]) Functional Tests Apley's Scratch Test Action 1- Left post cuff Action 1- Right post cuff Action 2- Left T5 Action 2- Right T4 Action 3- Left T8 Action 3- Right T8 Five Times Sit to Stand Test Score 14 Comments inc knee pain with reps PT-OP-F Manual Assessment Start: 05/15/24 15:54 Freq: Status: Active Protocol: Document 05/18/24 09:46 NM (Rec: 05/18/24 11:15 NM [id number]) Manual Assessments Soft Tissue Assessment Soft Tissue Mobility Assessment Restrictions of cervicothoracic paraspinals, pec, rotator cuff, periscapulars Restrictions of R adductors, quad, hip flexors, and hamstrings Joint Mobility Assessment Joint Mobility Assessment L shoulder: AROM and PROM similar, limitations at scapular and GHJ. cervical spine restrictions on L side likely also reduce muscle length R knee: decreased patellar mobility compared to contralateral limb, pain with flex<>ext transition, no pain with overpressure into extension but mildly painful overpressure into flexion PT-OP-G Mobility & Gait Start: 05/15/24 15:54 Freq: Status: Active Protocol: Document 05/18/24 09:46 NM (Rec: 05/18/24 11:15 NM [id number]) OP Gait Assessment Gait Gait Assistance Required: Independent Distance (Feet) 150 Assistive Devices Assistive Device None Gait Deviations General Gait Pattern Antalgic Comments Gait Comments decreased trunk rotation. slight limp with R stance PT-OP-J Posture/Palpation/Skin Start: 05/15/24 15:54 Freq: Status: Active Protocol: Document 05/18/24 09:46 NM (Rec: 05/18/24 11:15 NM [id number]) Posture Evaluation Position Standing Head/C-Spine Posture Forward Head Shoulder Posture (L) Rounded,(R) Rounded,(L) Forward,(R) Forward Scapula Posture (L) Retracted,(L) Elevated Pelvis Posture Anteriorly Tilted Weight Distribution Weight Shifted Left Hip Posture (L) Externally Rotated,(R) Externally Rotated Knee Posture (L) Genu Valgus,(R) Genu Valgus Palpation Assessment Location L shoulder Palpation Details tenderness along L scapular border tightness and restriction of periscapulars, levator scapula , trapezius, pec, posterior cuff R knee Palpation Details Tenderness along medial joint line, medial knee above and below joint line, distal adductors no tenderness along pes anserine, patellar or quad tendon, patella mild tenderness along posterior hip near SIJ PT-OP-K Range of Motion Start: 05/15/24 15:54 Freq: Status: Active Protocol: Document 05/18/24 09:46 NM (Rec: 05/18/24 11:15 NM [id number]) Cervical Spine Range of Motion Cervical Spine Active Degrees Flexion 30 Extension 30 Rotation Left 45 Rotation Right 55 Lateral Flexion Left 20 Lateral Flexion Right 20 Comments crepitus, stiffness, no scapular pain L rot inc shoulder blade pain Shoulder Goniometric Range of Motion Shoulder Right Flexion 160 Extension 40 Abduction 170 External Rotation at 90 degrees 80 Abduction Left Flexion 150 Extension 50 Abduction 170 External Rotation at 90 degrees 75 Abduction Comments compensated with trunk extension Knee Goniometric Range of Motion Knee Right Flexion Active (degrees) 122 Extension Active (degrees) 5 Comments pain with flex and ext Left Flexion Active (degrees) 130 Extension Active (degrees) 2 PT-OP-L Special Tests Start: 05/15/24 15:54 Freq: Status: Active Protocol: Document 05/18/24 09:46 NM (Rec: 05/18/24 11:15 NM [id number]) Special Tests Cervical Spine Special Tests Traction Test Results - Spurling's Test Test Results - Knee Special Tests Patellar Grind Test Test Results + Lauryn's Test Results - Alisa Test Test Results - Varus Test Results - Comments 0 and 25 deg Valgus Test Results - Comments 0 and 25 deg Neural Special Tests- Upper Body Upper Limb Tension Test Test Results + Comments median n. PT-OP-M Strength Start: 05/15/24 15:54 Freq: Status: Active Protocol: Document 05/18/24 09:46 NM (Rec: 05/18/24 11:15 NM [id number]) Shoulder Strength Shoulder Manual Muscle Testing Right Flexion 4+ Good+ Abduction (C5) 4+ Good+ External Rotation 4+ Good+ Internal Rotation 4+ Good+ Left Flexion 4 Good Abduction (C5) 4 Good External Rotation 4 Good Internal Rotation 4 Good Comments no pain with resisted testing Hip Strength Hip Manual Muscle Testing Right Flexion (L2) 4 Good Extension (S1) 4 Good Abduction 4 Good Adduction 4 Good Left Flexion (L2) 4+ Good+ Extension (S1) 4 Good Abduction 4 Good Adduction 4+ Good+ Knee Strength Knee Manual Muscle Testing Right Flexion (S2) 4- Good- Extension (L3) 4- Good- Comments pain with resisted ext and flex Left Flexion (S2) 4+ Good+ Extension (L3) 4+ Good+ PT-OP-Q Treatments Start: 05/15/24 15:54 Freq: Status: Active Protocol: Document 05/25/24 10:38 AB (Rec: 05/25/24 12:33 AB [id number]) Gym Equipment Shuttle Recovery bilateral Resistance 50 Reps/Time [id number] Therapeutic Exercises Supine Exercises Straight Leg Raise Supine Exercise Name HEP Side right Equipment Used hooklying Reps/Minutes 15 Comments cued for quad set; pain free; maintains good contraction Sidelying Exercises open book Side bilateral Reps/Minutes X8 Comments verbal and tactile cues, VC to hold 3 breaths shoulder AROM Sidelying Exercise Name 1. ER 2. abd Reps/Minutes X10 each Standing Exercises mini squat with band Side bilateral Resistance level 3 band above knees Reps/Minutes X10 X 2 Comments Shannen al and visual cues side stepping Standing Exercise Name trialed Side bilateral Reps/Minutes 10 ft ea Manual Therapy Treatment Consent Patient gave verbal consent for manual Yes treatment Soft Tissue Mobilization L shoulder Body Location pec, post cuff, periscap area, inc emph UT/levat scap Mobilization Type Cross-Friction,Rolling, Sustained Pressure Intensity/Depth Moderate Body Position Hooklying Comments and sidelying R knee Body Location pes anserine, quad Body Position Hooklying Joint Mobilizations L scapula Direction into add and dep Grade III Body Position Hooklying Reps/Duration X10 L GH Direction inf and AP Grade III Body Position Hooklying Reps/Duration 2X10 inf 3X 10 AP PT-OP-T Assessment and Plan Start: 05/15/24 15:54 Freq: Status: Active Protocol: Document 05/25/24 10:38 AB (Rec: 05/25/24 12:33 AB [id number]) Physical Therapy Assessment Goals Four Impairment limitations in L shoulder flexion AROM 150 deg, CS rot L 45 deg Short Term Goal (STG) Pt will increase L shoulder flexion >150 deg AROM in order to improve ability to reach, lift, and carry objects during ADLs. STG Duration 07/03/24 Nursing Home Goal (LTG) If appropriate, pt will increase B cervical spine rotation >55 deg in order to improve visual scanning for driving and decreased soft tissue limitations for L shoulder ROM LTG Duration 07/17/24 Three Impairment pain with squats, STS, kneeling, floor transfers Short Term Goal (STG) Pt will increase R knee strength globally to at least 4/5 MMT and R hip strength globally ot 4+5/MMT to improve ability to perform transfers STG Duration 07/03/24 Nanotechnology Engineering Technologist Goal (LTG) Pt will report <3/10 R knee pain with floor transfers with or without UE assist and/or kneeling in order to be able to perform housework LTG Duration 07/17/24 Two Impairment pain with ambulation; limitations in R knee/hip strength Nanotechnology Engineering Technologist Goal (LTG) Pt will be able to ambulate daily with R knee pain <3/10 with minimal deviations LTG Duration 07/17/24 One Impairment R knee ROM limited: 122 deg flex, lacking 5 deg ext Nanotechnology Engineering Technologist Goal (LTG) Pt will increase R knee flexion AROM >125 deg and R knee extension to lacking 2 deg or less in order to improve ROM for transfers and gait LTG Duration 07/17/24 Assessment Summary Assessment 155 deg AROM left shoulder flexion end of session, patient reports feeling great. Physical Therapy Plan Frequency and Duration Frequency of Treatment 2x/Week Duration of treatment (weeks) 8 Plan of Care Start Date 05/18/24 Plan of Care End Date 07/17/24 Next Visit Focus/Plan Next Note Type Treatment Note Next Visit Plan trial standing abd w/o band vs s/l abd for strength R knee: knee mobilizations, STM, HS stretch, quad stretch, TFL stretch, TKE with band, side steps vs hip abd/ext standing, partial squat L shoulder: cervical spine baldo, retraction, scapular mobilizations, GHJ mobilizations, STM, periscapular activation, TS rot and ext
--- NOTE | 2024-05-27 11:50 | PT.OTN ---
Current Diagnoses Osteoarthritis of knee, unspecified (05/27/24) Unspecified osteoarthritis, unspecified site (05/27/24) Pain in left shoulder (05/27/24) Pain in right knee (05/27/24) Stiffness of left shoulder, not elsewhere classified (05/27/24) Stiffness of right knee, not elsewhere classified (05/27/24) Difficulty in walking, not elsewhere classified (05/27/24) Other abnormalities of gait and mobility (05/27/24) Weakness (05/27/24) Physical Therapy Treatment Note PT-OP-A Visit Information Start: 05/15/24 15:54 Freq: Status: Active Protocol: Document 05/27/24 10:26 NM (Rec: 05/27/24 11:50 NM [id number]) Out-Patient Physical Therapy Visit Information Visit Information Visit Type Treatment Note Visit Start Time 10:47 Visit Stop Time 11:30 Visit Number 4 Number of CLAIMS EXAMINER Visits 0 Evaluation Information Evaluation Date 05/18/24 Precautions Precautions osteopenia PT-OP-B Current Condition Start: 05/15/24 15:54 Freq: Status: Active Protocol: Document 05/18/24 09:46 NM (Rec: 05/18/24 11:15 NM [id number]) Current Condition History of Current Condition Onset Date March 2024 Current Complaints pain in R knee History of Current Condition Pt reports that she woke up after Wendy with L shoulder pain and R knee pain. Reports got the flu on day; reports pain worse with illness but has improved overall since no longer sick. Minimal knee pain prior to illness in March. She reports that she has less pain with L shoulder with exercise, better. She does report that tingling/numbness from shoulder into her hand, specifically her thumb and the 2nd figner. Gets in bed sleeping, usually on L shoulder. No changes to temperature or sensation, or strength. Hx of L frozen shoulder (2009); no other injuries or recurrences since that episode. Pt reports that she always gets a tingling in that L shoulder after illness/shot since she had frozen shoulder. Occasional neck pain, headaches. She reports R knee hurts as well States that it will occasionally locks or feels like it stiffens (denies catching, locking without being able to move knee, or knee giving out), worse with sitting for long time or inactivity. Since started limping, she reports that her R hip starts to hurt too. Walks 1 mi ea morning and evening. Has been wearing a patellar brace but unsure if she should; she has hx of patellar pain on same side since 2013 (with hula). Trouble with carrying heavy things (15-20#), getting up/ off floor, kneeling, getting in/out of car. Worse in morning then late evening. No numbness/tingling. Treatment Goals Patient/Caregiver Goals pt more concerned about knee/ shoulder PT-OP-C Subjective Start: 05/15/24 15:54 Freq: Status: Active Protocol: Document 05/27/24 10:26 NM (Rec: 05/27/24 11:50 NM [id number]) OP-PT Subjective Patient Comments Patient Comments Pt reports that her shoulder is fine. She reports that her R knee is tender when she touches it, but reports doing better overall. She reports bothers her when sleeping but does not bother. PT-OP-E Functional Tests Start: 05/15/24 15:54 Freq: Status: Active Protocol: Document 05/18/24 09:46 NM (Rec: 05/18/24 11:15 NM [id number]) Functional Tests Apley's Scratch Test Action 1- Left post cuff Action 1- Right post cuff Action 2- Left T5 Action 2- Right T4 Action 3- Left T8 Action 3- Right T8 Five Times Sit to Stand Test Score 14 Comments inc knee pain with reps PT-OP-F Manual Assessment Start: 05/15/24 15:54 Freq: Status: Active Protocol: Document 05/18/24 09:46 NM (Rec: 05/18/24 11:15 NM [id number]) Manual Assessments Soft Tissue Assessment Soft Tissue Mobility Assessment Restrictions of cervicothoracic paraspinals, pec, rotator cuff, periscapulars Restrictions of R adductors, quad, hip flexors, and hamstrings Joint Mobility Assessment Joint Mobility Assessment L shoulder: AROM and PROM similar, limitations at scapular and GHJ. cervical spine restrictions on L side likely also reduce muscle length R knee: decreased patellar mobility compared to contralateral limb, pain with flex<>ext transition, no pain with overpressure into extension but mildly painful overpressure into flexion PT-OP-G Mobility & Gait Start: 05/15/24 15:54 Freq: Status: Active Protocol: Document 05/18/24 09:46 NM (Rec: 05/18/24 11:15 NM [id number]) OP Gait Assessment Gait Gait Assistance Required: Independent Distance (Feet) 150 Assistive Devices Assistive Device None Gait Deviations General Gait Pattern Antalgic Comments Gait Comments decreased trunk rotation. slight limp with R stance PT-OP-J Posture/Palpation/Skin Start: 05/15/24 15:54 Freq: Status: Active Protocol: Document 05/18/24 09:46 NM (Rec: 05/18/24 11:15 NM [id number]) Posture Evaluation Position Standing Head/C-Spine Posture Forward Head Shoulder Posture (L) Rounded,(R) Rounded,(L) Forward,(R) Forward Scapula Posture (L) Retracted,(L) Elevated Pelvis Posture Anteriorly Tilted Weight Distribution Weight Shifted Left Hip Posture (L) Externally Rotated,(R) Externally Rotated Knee Posture (L) Genu Valgus,(R) Genu Valgus Palpation Assessment Location L shoulder Palpation Details tenderness along L scapular border tightness and restriction of periscapulars, levator scapula , trapezius, pec, posterior cuff R knee Palpation Details Tenderness along medial joint line, medial knee above and below joint line, distal adductors no tenderness along pes anserine, patellar or quad tendon, patella mild tenderness along posterior hip near SIJ PT-OP-K Range of Motion Start: 05/15/24 15:54 Freq: Status: Active Protocol: Document 05/18/24 09:46 NM (Rec: 05/18/24 11:15 NM [id number]) Cervical Spine Range of Motion Cervical Spine Active Degrees Flexion 30 Extension 30 Rotation Left 45 Rotation Right 55 Lateral Flexion Left 20 Lateral Flexion Right 20 Comments crepitus, stiffness, no scapular pain L rot inc shoulder blade pain Shoulder Goniometric Range of Motion Shoulder Right Flexion 160 Extension 40 Abduction 170 External Rotation at 90 degrees 80 Abduction Left Flexion 150 Extension 50 Abduction 170 External Rotation at 90 degrees 75 Abduction Comments compensated with trunk extension Knee Goniometric Range of Motion Knee Right Flexion Active (degrees) 122 Extension Active (degrees) 5 Comments pain with flex and ext Left Flexion Active (degrees) 130 Extension Active (degrees) 2 PT-OP-L Special Tests Start: 05/15/24 15:54 Freq: Status: Active Protocol: Document 05/18/24 09:46 NM (Rec: 05/18/24 11:15 NM [id number]) Special Tests Cervical Spine Special Tests Traction Test Results - Spurling's Test Test Results - Knee Special Tests Patellar Grind Test Test Results + Lauryn's Test Results - Alisa Test Test Results - Varus Test Results - Comments 0 and 25 deg Valgus Test Results - Comments 0 and 25 deg Neural Special Tests- Upper Body Upper Limb Tension Test Test Results + Comments median n. PT-OP-M Strength Start: 05/15/24 15:54 Freq: Status: Active Protocol: Document 05/18/24 09:46 NM (Rec: 05/18/24 11:15 NM [id number]) Shoulder Strength Shoulder Manual Muscle Testing Right Flexion 4+ Good+ Abduction (C5) 4+ Good+ External Rotation 4+ Good+ Internal Rotation 4+ Good+ Left Flexion 4 Good Abduction (C5) 4 Good External Rotation 4 Good Internal Rotation 4 Good Comments no pain with resisted testing Hip Strength Hip Manual Muscle Testing Right Flexion (L2) 4 Good Extension (S1) 4 Good Abduction 4 Good Adduction 4 Good Left Flexion (L2) 4+ Good+ Extension (S1) 4 Good Abduction 4 Good Adduction 4+ Good+ Knee Strength Knee Manual Muscle Testing Right Flexion (S2) 4- Good- Extension (L3) 4- Good- Comments pain with resisted ext and flex Left Flexion (S2) 4+ Good+ Extension (L3) 4+ Good+ PT-OP-Q Treatments Start: 05/15/24 15:54 Freq: Status: Active Protocol: Document 05/27/24 10:26 NM (Rec: 05/27/24 11:50 NM [id number]) Therapeutic Exercises Standing Exercises [place] squat Standing Exercise Name trialed in PT Side bilateral Resistance level 3 [place] band Reps/Minutes 8 Comments poor tolerance; increased ant knee pain d/c hip extension Side bilateral Resistance level 1 band at thighs Equipment Used 1 hand support for balance Reps/Minutes 2x10 ea Comments good feedback; add to HEP next session hip flexion Standing Exercise Name not marching; heel taps Side bilateral Resistance level 1 band thighs Equipment Used 1 hand support for balance Reps/Minutes 2x10 ea Comments seated for energy conservation mini squat with band Standing Exercise Name reviewed in clinic Side bilateral Resistance level 3 band above knees Reps/Minutes 2x10; retest post tape c/ less pain in B knees x10 Comments verbal and visual cues for more hip hinge than knee flex; pat tendon pain side stepping Standing Exercise Name retrialed today - HEP Side bilateral Resistance AROM > level 1 band at thighs Equipment Used 1 hand support as needed Reps/Minutes 2x10 ft AROM, 3x10 ft c/ band Comments no pain; cued for squat form Manual Therapy Treatment Consent Patient gave verbal consent for manual Yes treatment Soft Tissue Mobilization R knee Body Location pes anserine, quad, adductors, HS Mobilization Type Myofascial Release,Rolling, Strumming,Sustained Pressure Body Position Hooklying Comments superficial at adductors and pes anserine, moderate at medial hamstrings especially at muscle belly and quad monitored for pain. Educated can trial grandson's percussion gun for massage; start on lowest setting and determine tolerance, then can progress intensity if tolerates well. Focus on muscle belly and tender points , but do not spend increased time on tender points. Avoid bones Taping R knee Body Location patellar tendon, patellar femoral joint Treatment Focus pain management Type of Tape Kinesio Tape Skin Inspection intact, no redness/irritation Comments 3 I strips: 1 horizontal at patellar tendon, 2 distal > proximal making X from just distal to tibial plateaus to femoral condyles; <50% stretch ea Pt educated to watch skin for redness or irritation; remove promptly if occurs. Educated to remove in 3-5 days PT-OP-T Assessment and Plan Start: 05/15/24 15:54 Freq: Status: Active Protocol: Document 05/27/24 10:26 NM (Rec: 05/27/24 11:50 NM [id number]) Physical Therapy Assessment Goals Four Impairment limitations in L shoulder flexion AROM 150 deg, CS rot L 45 deg Short Term Goal (STG) Pt will increase L shoulder flexion >150 deg AROM in order to improve ability to reach, lift, and carry objects during ADLs. STG Duration 07/03/24 Wood Inspector Goal (LTG) If appropriate, pt will increase B cervical spine rotation >55 deg in order to improve visual scanning for driving and decreased soft tissue limitations for L shoulder ROM LTG Duration 07/17/24 Three Impairment pain with squats, STS, kneeling, floor transfers Short Term Goal (STG) Pt will increase R knee strength globally to at least 4/5 MMT and R hip strength globally ot 4+5/MMT to improve ability to perform transfers STG Duration 07/03/24 Wood Inspector Goal (LTG) Pt will report <3/10 R knee pain with floor transfers with or without UE assist and/or kneeling in order to be able to perform housework LTG Duration 07/17/24 Two Impairment pain with ambulation; limitations in R knee/hip strength Correction Goal (LTG) Pt will be able to ambulate daily with R knee pain <3/10 with minimal deviations LTG Duration 07/17/24 One Impairment R knee ROM limited: 122 deg flex, lacking 5 deg ext Wood Inspector Goal (LTG) Pt will increase R knee flexion AROM >125 deg and R knee extension to lacking 2 deg or less in order to improve ROM for transfers and gait LTG Duration 07/17/24 Assessment Summary Assessment Pt responds well to progressions in therapeutic exercise with hip strengthening. Cueing needed for correct execution, but no increased pain in knees. Demos quad dominant squat, leads to increased knee pain. Reduced with hip hinge but still present; significant reduction with taping patellar tendon. Educated on use of self soft tissue mobilization to decrease patellofemoral and pes anserine pain. Pt would continue to benefit from skilled PT for progressive strengthening and mobility in order to improve functional ADLs and mobility. Physical Therapy Plan Frequency and Duration Frequency of Treatment 2x/Week Duration of treatment (weeks) 8 Plan of Care Start Date 05/18/24 Plan of Care End Date 07/17/24 Therapeutic Interventions Therapeutic Interventions Balance Training,Canalithic Repositioning,Gait Training, Home Exercise Program,Joint Mobilizations,Manual Therapy, Neuromuscular Re-education, Orthotic/Prosthetic Management ,Patient/Caregiver Education, Self-Care/Home Management, Sensory Integration,Soft Tissue Mobilization,Taping, Therapeutic Activities, Therapeutic Exercises, Vestibular Rehabilitation Modalities Cold Pack/Ice Massage,Electric Stimulation,Hot Packs, Ultrasound,Vasopneumatic Devices Other Therapeutic Interventions No grade IV mobilizations due to osteopenia Next Visit Focus/Plan Next Note Type Treatment Note Next Visit Plan Assess tolerance for tape. Can retape if desired. Add standing abd/ext/flex c/ band to HEP. Condense HEP. Leg press vs wall squat vs minisquat- address mechanics. LAQ baldo vs full ROM depending on pat pain. glute/quad strength R knee: knee mobilizations, STM, HS stretch, quad stretch, TFL stretch, TKE with band, side steps vs hip abd/ext standing, partial squat L shoulder: cervical spine baldo, retraction, scapular mobilizations, GHJ mobilizations, STM, periscapular activation, TS rot and ext
--- NOTE | 2024-06-01 15:27 | PT.OTN ---
Current Diagnoses Osteoarthritis of knee, unspecified (06/01/24) Unspecified osteoarthritis, unspecified site (06/01/24) Pain in left shoulder (06/01/24) Pain in right knee (06/01/24) Stiffness of left shoulder, not elsewhere classified (06/01/24) Stiffness of right knee, not elsewhere classified (06/01/24) Difficulty in walking, not elsewhere classified (06/01/24) Other abnormalities of gait and mobility (06/01/24) Weakness (06/01/24) Physical Therapy Treatment Note PT-OP-A Visit Information Start: 05/15/24 15:54 Freq: Status: Active Protocol: Document 06/01/24 14:33 NM (Rec: 06/01/24 15:27 NM [id number]) Out-Patient Physical Therapy Visit Information Visit Information Visit Type Treatment Note Visit Start Time 14:34 Visit Stop Time 15:15 Visit Number 5 Evaluation Information Evaluation Date 05/18/24 Precautions Precautions osteopenia PT-OP-B Current Condition Start: 05/15/24 15:54 Freq: Status: Active Protocol: Document 05/18/24 09:46 NM (Rec: 05/18/24 11:15 NM [id number]) Current Condition History of Current Condition Onset Date March 2024 Current Complaints pain in R knee History of Current Condition Pt reports that she woke up after [place] with L shoulder pain and R knee pain. Reports got the flu on day; reports pain worse with illness but has improved overall since no longer sick. Minimal knee pain prior to illness in March. She reports that she has less pain with L shoulder with exercise, better. She does report that tingling/numbness from shoulder into her hand, specifically her thumb and the 2nd figner. Gets in bed sleeping, usually on L shoulder. No changes to temperature or sensation, or strength. Hx of L frozen shoulder (2009); no other injuries or recurrences since that episode. Pt reports that she always gets a tingling in that L shoulder after illness/shot since she had frozen shoulder. Occasional neck pain, headaches. She reports R knee hurts as well States that it will occasionally locks or feels like it stiffens (denies catching, locking without being able to move knee, or knee giving out), worse with sitting for long time or inactivity. Since started limping, she reports that her R hip starts to hurt too. Walks 1 mi ea morning and evening. Has been wearing a patellar brace but unsure if she should; she has hx of patellar pain on same side since 2013 (with hula). Trouble with carrying heavy things (15-20#), getting up/ off floor, kneeling, getting in/out of car. Worse in morning then late evening. No numbness/tingling. Treatment Goals Patient/Caregiver Goals pt more concerned about knee/ shoulder PT-OP-C Subjective Start: 05/15/24 15:54 Freq: Status: Active Protocol: Document 06/01/24 14:33 NM (Rec: 06/01/24 15:27 NM [id number]) OP-PT Subjective Patient Comments Patient Comments Pt reports taping helped a lot with exercises, felt good, no rash. Pt reports that her knee does not hurt when moving , only when lying down (tender ). Reports that she is improving in her ability to get up and down, no freezing or catching Patient Reported Progress Improving PT-OP-E Functional Tests Start: 05/15/24 15:54 Freq: Status: Active Protocol: Document 05/18/24 09:46 NM (Rec: 05/18/24 11:15 NM [id number]) Functional Tests Apley's Scratch Test Action 1- Left post cuff Action 1- Right post cuff Action 2- Left T5 Action 2- Right T4 Action 3- Left T8 Action 3- Right T8 Five Times Sit to Stand Test Score 14 Comments inc knee pain with reps PT-OP-F Manual Assessment Start: 05/15/24 15:54 Freq: Status: Active Protocol: Document 05/18/24 09:46 NM (Rec: 05/18/24 11:15 NM [id number]) Manual Assessments Soft Tissue Assessment Soft Tissue Mobility Assessment Restrictions of cervicothoracic paraspinals, pec, rotator cuff, periscapulars Restrictions of R adductors, quad, hip flexors, and hamstrings Joint Mobility Assessment Joint Mobility Assessment L shoulder: AROM and PROM similar, limitations at scapular and GHJ. cervical spine restrictions on L side likely also reduce muscle length R knee: decreased patellar mobility compared to contralateral limb, pain with flex<>ext transition, no pain with overpressure into extension but mildly painful overpressure into flexion PT-OP-G Mobility & Gait Start: 05/15/24 15:54 Freq: Status: Active Protocol: Document 05/18/24 09:46 NM (Rec: 05/18/24 11:15 NM [id number]) OP Gait Assessment Gait Gait Assistance Required: Independent Distance (Feet) 150 Assistive Devices Assistive Device None Gait Deviations General Gait Pattern Antalgic Comments Gait Comments decreased trunk rotation. slight limp with R stance PT-OP-J Posture/Palpation/Skin Start: 05/15/24 15:54 Freq: Status: Active Protocol: Document 05/18/24 09:46 NM (Rec: 05/18/24 11:15 NM [id number]) Posture Evaluation Position Standing Head/C-Spine Posture Forward Head Shoulder Posture (L) Rounded,(R) Rounded,(L) Forward,(R) Forward Scapula Posture (L) Retracted,(L) Elevated Pelvis Posture Anteriorly Tilted Weight Distribution Weight Shifted Left Hip Posture (L) Externally Rotated,(R) Externally Rotated Knee Posture (L) Genu Valgus,(R) Genu Valgus Palpation Assessment Location L shoulder Palpation Details tenderness along L scapular border tightness and restriction of periscapulars, levator scapula , trapezius, pec, posterior cuff R knee Palpation Details Tenderness along medial joint line, medial knee above and below joint line, distal adductors no tenderness along pes anserine, patellar or quad tendon, patella mild tenderness along posterior hip near SIJ PT-OP-K Range of Motion Start: 05/15/24 15:54 Freq: Status: Active Protocol: Document 05/18/24 09:46 NM (Rec: 05/18/24 11:15 NM [id number]) Cervical Spine Range of Motion Cervical Spine Active Degrees Flexion 30 Extension 30 Rotation Left 45 Rotation Right 55 Lateral Flexion Left 20 Lateral Flexion Right 20 Comments crepitus, stiffness, no scapular pain L rot inc shoulder blade pain Shoulder Goniometric Range of Motion Shoulder Right Flexion 160 Extension 40 Abduction 170 External Rotation at 90 degrees 80 Abduction Left Flexion 150 Extension 50 Abduction 170 External Rotation at 90 degrees 75 Abduction Comments compensated with trunk extension Knee Goniometric Range of Motion Knee Right Flexion Active (degrees) 122 Extension Active (degrees) 5 Comments pain with flex and ext Left Flexion Active (degrees) 130 Extension Active (degrees) 2 PT-OP-L Special Tests Start: 05/15/24 15:54 Freq: Status: Active Protocol: Document 05/18/24 09:46 NM (Rec: 05/18/24 11:15 NM [id number]) Special Tests Cervical Spine Special Tests Traction Test Results - Spurling's Test Test Results - Knee Special Tests Patellar Grind Test Test Results + Lauryn's Test Results - Alisa Test Test Results - Varus Test Results - Comments 0 and 25 deg Valgus Test Results - Comments 0 and 25 deg Neural Special Tests- Upper Body Upper Limb Tension Test Test Results + Comments median n. PT-OP-M Strength Start: 05/15/24 15:54 Freq: Status: Active Protocol: Document 05/18/24 09:46 NM (Rec: 05/18/24 11:15 NM [id number]) Shoulder Strength Shoulder Manual Muscle Testing Right Flexion 4+ Good+ Abduction (C5) 4+ Good+ External Rotation 4+ Good+ Internal Rotation 4+ Good+ Left Flexion 4 Good Abduction (C5) 4 Good External Rotation 4 Good Internal Rotation 4 Good Comments no pain with resisted testing Hip Strength Hip Manual Muscle Testing Right Flexion (L2) 4 Good Extension (S1) 4 Good Abduction 4 Good Adduction 4 Good Left Flexion (L2) 4+ Good+ Extension (S1) 4 Good Abduction 4 Good Adduction 4+ Good+ Knee Strength Knee Manual Muscle Testing Right Flexion (S2) 4- Good- Extension (L3) 4- Good- Comments pain with resisted ext and flex Left Flexion (S2) 4+ Good+ Extension (L3) 4+ Good+ PT-OP-Q Treatments Start: 05/15/24 15:54 Freq: Status: Active Protocol: Document 06/01/24 14:33 NM (Rec: 06/01/24 15:27 NM [id number]) Therapeutic Exercises Supine Exercises happy baby Reps/Minutes 60 Sidelying Exercises quad stretch Sidelying Exercise Name strap assist for RLE- HEP Side bilateral Equipment Used pillow between legs for comfort Reps/Minutes 60 ea Comments cued form and set up on RLE Sitting Exercises LAQ Sitting Exercise Name isometric: 90 and 120 deg Side right Resistance level 1 band at ankle tied to chair Reps/Minutes 4x30 ea Standing Exercises lunges Standing Exercise Name HEP Side bilateral Equipment Used //bar support Reps/Minutes 2x10 Comments cued set up form; no knee pain ; post tape; partial ROM wall squat Side bilateral Resistance AROM Equipment Used blue sao tomean ball at back Reps/Minutes 10 Other Exercises quadruped Other Exercise Name trialed to kneeling Reps/Minutes 2 Comments inc pain c/ kneeling at medial knee; no pain in quadruped Manual Therapy Treatment Consent Patient gave verbal consent for manual Yes treatment Soft Tissue Mobilization R knee Body Location pes anserine, quad, adductors, HS Mobilization Type Myofascial Release,Rolling, Strumming,Sustained Pressure Body Position Hooklying Comments superficial at adductors and pes anserine, moderate at medial hamstrings especially at muscle belly and quad Joint Mobilizations R knee Joint patellar, tibiofemoral Direction med/lat, inf; PA and AP c/ slight distraction Reps/Duration 4x30 ea Comments monitored for pain Taping R knee Body Location patellar tendon, patellar femoral joint Treatment Focus pain management Type of Tape Kinesio Tape Skin Inspection intact, no redness/irritation Comments 3 I strips: 1 horizontal at patellar tendon, 2 distal > proximal making X from just distal to tibial plateaus to femoral condyles; <50% stretch ea Pt educated to watch skin for redness or irritation; remove promptly if occurs. Educated to remove in 3-5 days PT-OP-T Assessment and Plan Start: 05/15/24 15:54 Freq: Status: Active Protocol: Document 06/01/24 14:33 NM (Rec: 06/01/24 15:27 NM [id number]) Physical Therapy Assessment Goals Four Impairment limitations in L shoulder flexion AROM 150 deg, CS rot L 45 deg Short Term Goal (STG) Pt will increase L shoulder flexion >150 deg AROM in order to improve ability to reach, lift, and carry objects during ADLs. STG Duration 07/03/24 Senior Living Goal (LTG) If appropriate, pt will increase B cervical spine rotation >55 deg in order to improve visual scanning for driving and decreased soft tissue limitations for L shoulder ROM LTG Duration 07/17/24 Three Impairment pain with squats, STS, kneeling, floor transfers Short Term Goal (STG) Pt will increase R knee strength globally to at least 4/5 MMT and R hip strength globally ot 4+5/MMT to improve ability to perform transfers STG Duration 07/03/24 Section Plotter Operator Goal (LTG) Pt will report <3/10 R knee pain with floor transfers with or without UE assist and/or kneeling in order to be able to perform housework LTG Duration 07/17/24 Two Impairment pain with ambulation; limitations in R knee/hip strength Section Plotter Operator Goal (LTG) Pt will be able to ambulate daily with R knee pain <3/10 with minimal deviations LTG Duration 07/17/24 One Impairment R knee ROM limited: 122 deg flex, lacking 5 deg ext Section Plotter Operator Goal (LTG) Pt will increase R knee flexion AROM >125 deg and R knee extension to lacking 2 deg or less in order to improve ROM for transfers and gait LTG Duration 07/17/24 Assessment Summary Assessment Trialed lunges today in order to initiate floor transfers. Pt able to perform partial ROM with no knee pain post taping and with hand support. Cueing needed for set up. Pt has pain at medial knee with attempt to kneel; sherlyn reduction with quad stretching , but also limited by decreased end range knee flexion range. Wall squats do not have increased pain with limited ROM and reps; feels mainly at patellar tendon. Trialed isometrics with band for patellar tendon pain management. Pt has less muscle tightness and discomfort with manual treatment; taping assists with pain management. Physical Therapy Plan Frequency and Duration Frequency of Treatment 2x/Week Duration of treatment (weeks) 8 Plan of Care Start Date 05/18/24 Plan of Care End Date 07/17/24 Therapeutic Interventions Therapeutic Interventions Balance Training,Canalithic Repositioning,Gait Training, Home Exercise Program,Joint Mobilizations,Manual Therapy, Neuromuscular Re-education, Orthotic/Prosthetic Management ,Patient/Caregiver Education, Self-Care/Home Management, Sensory Integration,Soft Tissue Mobilization,Taping, Therapeutic Activities, Therapeutic Exercises, Vestibular Rehabilitation Modalities Cold Pack/Ice Massage,Electric Stimulation,Hot Packs, Ultrasound,Vasopneumatic Devices Other Therapeutic Interventions No grade IV mobilizations due to osteopenia Next Visit Focus/Plan Next Note Type Treatment Note Next Visit Plan trial quadruped with towel gap , end range knee flexion. leg press. trial floor transfer Add standing abd/ext/flex c/ band to HEP. Condense HEP. LAQ baldo again if needed. R knee: knee mobilizations, STM, HS stretch, quad stretch, TFL stretch, TKE with band, side steps vs hip abd/ext standing, partial squat L shoulder: cervical spine baldo, retraction, scapular mobilizations, GHJ mobilizations, STM, periscapular activation, TS rot and ext
--- NOTE | 2024-06-03 10:36 | PT.OTN ---
Current Diagnoses Osteoarthritis of knee, unspecified (06/03/24) Unspecified osteoarthritis, unspecified site (06/03/24) Pain in left shoulder (06/03/24) Pain in right knee (06/03/24) Stiffness of left shoulder, not elsewhere classified (06/03/24) Stiffness of right knee, not elsewhere classified (06/03/24) Difficulty in walking, not elsewhere classified (06/03/24) Other abnormalities of gait and mobility (06/03/24) Weakness (06/03/24) Physical Therapy Treatment Note PT-OP-A Visit Information Start: 05/15/24 15:54 Freq: Status: Active Protocol: Document 06/03/24 09:47 NM (Rec: 06/03/24 10:36 NM [id number]) Out-Patient Physical Therapy Visit Information Visit Information Visit Type Treatment Note Visit Start Time 09:47 Visit Stop Time 10:30 Visit Number 6 Evaluation Information Evaluation Date 05/18/24 Precautions Precautions osteopenia PT-OP-B Current Condition Start: 05/15/24 15:54 Freq: Status: Active Protocol: Document 05/18/24 09:46 NM (Rec: 05/18/24 11:15 NM [id number]) Current Condition History of Current Condition Onset Date March 2024 Current Complaints pain in R knee History of Current Condition Pt reports that she woke up after [place] with L shoulder pain and R knee pain. Reports got the flu on day; reports pain worse with illness but has improved overall since no longer sick. Minimal knee pain prior to illness in March. She reports that she has less pain with L shoulder with exercise, better. She does report that tingling/numbness from shoulder into her hand, specifically her thumb and the 2nd figner. Gets in bed sleeping, usually on L shoulder. No changes to temperature or sensation, or strength. Hx of L frozen shoulder (2009); no other injuries or recurrences since that episode. Pt reports that she always gets a tingling in that L shoulder after illness/shot since she had frozen shoulder. Occasional neck pain, headaches. She reports R knee hurts as well States that it will occasionally locks or feels like it stiffens (denies catching, locking without being able to move knee, or knee giving out), worse with sitting for long time or inactivity. Since started limping, she reports that her R hip starts to hurt too. Walks 1 mi ea morning and evening. Has been wearing a patellar brace but unsure if she should; she has hx of patellar pain on same side since 2013 (with hula). Trouble with carrying heavy things (15-20#), getting up/ off floor, kneeling, getting in/out of car. Worse in morning then late evening. No numbness/tingling. Treatment Goals Patient/Caregiver Goals pt more concerned about knee/ shoulder PT-OP-C Subjective Start: 05/15/24 15:54 Freq: Status: Active Protocol: Document 06/03/24 09:47 NM (Rec: 06/03/24 10:36 NM [id number]) OP-PT Subjective Patient Comments Patient Comments Pt reports that 2/10 L knee pain, reports that occurs when lying down only. [place] good after last session PT-OP-E Functional Tests Start: 05/15/24 15:54 Freq: Status: Active Protocol: Document 05/18/24 09:46 NM (Rec: 05/18/24 11:15 NM [id number]) Functional Tests Apley's Scratch Test Action 1- Left post cuff Action 1- Right post cuff Action 2- Left T5 Action 2- Right T4 Action 3- Left T8 Action 3- Right T8 Five Times Sit to Stand Test Score 14 Comments inc knee pain with reps PT-OP-F Manual Assessment Start: 05/15/24 15:54 Freq: Status: Active Protocol: Document 05/18/24 09:46 NM (Rec: 05/18/24 11:15 NM [id number]) Manual Assessments Soft Tissue Assessment Soft Tissue Mobility Assessment Restrictions of cervicothoracic paraspinals, pec, rotator cuff, periscapulars Restrictions of R adductors, quad, hip flexors, and hamstrings Joint Mobility Assessment Joint Mobility Assessment L shoulder: AROM and PROM similar, limitations at scapular and GHJ. cervical spine restrictions on L side likely also reduce muscle length R knee: decreased patellar mobility compared to contralateral limb, pain with flex<>ext transition, no pain with overpressure into extension but mildly painful overpressure into flexion PT-OP-G Mobility & Gait Start: 05/15/24 15:54 Freq: Status: Active Protocol: Document 05/18/24 09:46 NM (Rec: 05/18/24 11:15 NM [id number]) OP Gait Assessment Gait Gait Assistance Required: Independent Distance (Feet) 150 Assistive Devices Assistive Device None Gait Deviations General Gait Pattern Antalgic Comments Gait Comments decreased trunk rotation. slight limp with R stance PT-OP-J Posture/Palpation/Skin Start: 05/15/24 15:54 Freq: Status: Active Protocol: Document 05/18/24 09:46 NM (Rec: 05/18/24 11:15 NM [id number]) Posture Evaluation Position Standing Head/C-Spine Posture Forward Head Shoulder Posture (L) Rounded,(R) Rounded,(L) Forward,(R) Forward Scapula Posture (L) Retracted,(L) Elevated Pelvis Posture Anteriorly Tilted Weight Distribution Weight Shifted Left Hip Posture (L) Externally Rotated,(R) Externally Rotated Knee Posture (L) Genu Valgus,(R) Genu Valgus Palpation Assessment Location L shoulder Palpation Details tenderness along L scapular border tightness and restriction of periscapulars, levator scapula , trapezius, pec, posterior cuff R knee Palpation Details Tenderness along medial joint line, medial knee above and below joint line, distal adductors no tenderness along pes anserine, patellar or quad tendon, patella mild tenderness along posterior hip near SIJ PT-OP-K Range of Motion Start: 05/15/24 15:54 Freq: Status: Active Protocol: Document 05/18/24 09:46 NM (Rec: 05/18/24 11:15 NM [id number]) Cervical Spine Range of Motion Cervical Spine Active Degrees Flexion 30 Extension 30 Rotation Left 45 Rotation Right 55 Lateral Flexion Left 20 Lateral Flexion Right 20 Comments crepitus, stiffness, no scapular pain L rot inc shoulder blade pain Shoulder Goniometric Range of Motion Shoulder Right Flexion 160 Extension 40 Abduction 170 External Rotation at 90 degrees 80 Abduction Left Flexion 150 Extension 50 Abduction 170 External Rotation at 90 degrees 75 Abduction Comments compensated with trunk extension Knee Goniometric Range of Motion Knee Right Flexion Active (degrees) 122 Extension Active (degrees) 5 Comments pain with flex and ext Left Flexion Active (degrees) 130 Extension Active (degrees) 2 PT-OP-L Special Tests Start: 05/15/24 15:54 Freq: Status: Active Protocol: Document 05/18/24 09:46 NM (Rec: 05/18/24 11:15 NM [id number]) Special Tests Cervical Spine Special Tests Traction Test Results - Spurling's Test Test Results - Knee Special Tests Patellar Grind Test Test Results + Lauryn's Test Results - Alisa Test Test Results - Varus Test Results - Comments 0 and 25 deg Valgus Test Results - Comments 0 and 25 deg Neural Special Tests- Upper Body Upper Limb Tension Test Test Results + Comments median n. PT-OP-M Strength Start: 05/15/24 15:54 Freq: Status: Active Protocol: Document 05/18/24 09:46 NM (Rec: 05/18/24 11:15 NM [id number]) Shoulder Strength Shoulder Manual Muscle Testing Right Flexion 4+ Good+ Abduction (C5) 4+ Good+ External Rotation 4+ Good+ Internal Rotation 4+ Good+ Left Flexion 4 Good Abduction (C5) 4 Good External Rotation 4 Good Internal Rotation 4 Good Comments no pain with resisted testing Hip Strength Hip Manual Muscle Testing Right Flexion (L2) 4 Good Extension (S1) 4 Good Abduction 4 Good Adduction 4 Good Left Flexion (L2) 4+ Good+ Extension (S1) 4 Good Abduction 4 Good Adduction 4+ Good+ Knee Strength Knee Manual Muscle Testing Right Flexion (S2) 4- Good- Extension (L3) 4- Good- Comments pain with resisted ext and flex Left Flexion (S2) 4+ Good+ Extension (L3) 4+ Good+ PT-OP-Q Treatments Start: 05/15/24 15:54 Freq: Status: Active Protocol: Document 06/03/24 09:47 NM (Rec: 06/03/24 10:36 NM [id number]) Gym Equipment Shuttle Recovery unilateral squat Details cued alignment Resistance 37# (teal) Reps/Time 15 ea Therapeutic Exercises Standing Exercises retro stepping Standing Exercise Name trialed in PT today Side bilateral Resistance level 3 band at thighs Reps/Minutes 2x10 ft lunges Standing Exercise Name HEP review- c/ hand support Side bilateral Resistance 1 hand support at //bar Equipment Used foam under knee (does not flex enough to reach) Reps/Minutes 2x10 ea Comments cued neutral foot position, no knee pain side stepping Standing Exercise Name retrialed today - HEP Side bilateral Resistance level 3 band at shins Equipment Used no UE support Reps/Minutes 3x10 ft Comments no pain with increased resistance Other Exercises quadruped Other Exercise Name quadruped > tall kneeling > short kneel Equipment Used towel roll behind knee Reps/Minutes 5 Comments less pain c/ pillow under knees and towel roll Manual Therapy Treatment Consent Patient gave verbal consent for manual Yes treatment Soft Tissue Mobilization R knee Body Location pes anserine, quad, adductors, HS Mobilization Type Myofascial Release,Rolling, Strumming,Sustained Pressure Body Position Hooklying Comments superficial at adductors and pes anserine, moderate at medial hamstrings especially at muscle belly and quad Taping R knee Body Location patellar tendon, patellar femoral joint Treatment Focus pain management Type of Tape Kinesio Tape Skin Inspection intact, no redness/irritation Comments Filmed by pt for carryover at home 3 I strips: 1 horizontal at patellar tendon, 2 distal > proximal making X from just distal to tibial plateaus to femoral condyles; <50% stretch ea Pt educated to watch skin for redness or irritation; remove promptly if occurs. Educated to remove in 3-5 days PT-OP-T Assessment and Plan Start: 05/15/24 15:54 Freq: Status: Active Protocol: Document 06/03/24 09:47 NM (Rec: 06/03/24 10:36 NM [id number]) Physical Therapy Assessment Goals Four Impairment limitations in L shoulder flexion AROM 150 deg, CS rot L 45 deg Short Term Goal (STG) Pt will increase L shoulder flexion >150 deg AROM in order to improve ability to reach, lift, and carry objects during ADLs. 06/03/24: STG Duration 07/03/24 [facility] Goal (LTG) If appropriate, pt will increase B cervical spine rotation >55 deg in order to improve visual scanning for driving and decreased soft tissue limitations for L shoulder ROM 06/03/24: 80 deg R, 65 deg L; no pain with driving LTG Duration 07/17/24 Three Impairment pain with squats, STS, kneeling, floor transfers Short Term Goal (STG) Pt will increase R knee strength globally to at least 4/5 MMT and R hip strength globally ot 4+5/MMT to improve ability to perform transfers STG Duration 07/03/24 [facility] Goal (LTG) Pt will report <3/10 R knee pain with floor transfers with or without UE assist and/or kneeling in order to be able to perform housework 06/03/24: lunges initiated today, in addition to kneeling education c/ towel roll and cushion under knee LTG Duration 07/17/24 Two Impairment pain with ambulation; limitations in R knee/hip strength [facility] Goal (LTG) Pt will be able to ambulate daily with R knee pain <3/10 with minimal deviations 06/03/24: pt reports no pain with ambulation, no limitations due to distance LTG Duration 07/17/24 MET One Impairment R knee ROM limited: 122 deg flex, lacking 5 deg ext [facility] Goal (LTG) Pt will increase R knee flexion AROM >125 deg and R knee extension to lacking 2 deg or less in order to improve ROM for transfers and gait 06/03/24: 135 deg flex, 0 deg extension LTG Duration 07/17/24 Assessment Summary Assessment Pt has no increased knee pain during session. Trialed kneeling with towel roll for gapping and pillow for cushion , which helped with pt's symptom management; educated on use at home while performing ADLs. Pt progressing toward goals, meeting several. Better response to lunges and increased depth today; still needs cueing to limit toeing out during exercise. Good feedback to progression to unilateral leg press; will attempt stairs in future sessions. Physical Therapy Plan Frequency and Duration Frequency of Treatment 2x/Week Duration of treatment (weeks) 8 Plan of Care Start Date 05/18/24 Plan of Care End Date 07/17/24 Therapeutic Interventions Therapeutic Interventions Balance Training,Canalithic Repositioning,Gait Training, Home Exercise Program,Joint Mobilizations,Manual Therapy, Neuromuscular Re-education, Orthotic/Prosthetic Management ,Patient/Caregiver Education, Self-Care/Home Management, Sensory Integration,Soft Tissue Mobilization,Taping, Therapeutic Activities, Therapeutic Exercises, Vestibular Rehabilitation Modalities Cold Pack/Ice Massage,Electric Stimulation,Hot Packs, Ultrasound,Vasopneumatic Devices Other Therapeutic Interventions No grade IV mobilizations due to osteopenia Next Visit Focus/Plan Next Note Type Treatment Note Next Visit Plan glute and quad strength. leg press. trial floor transfer Add standing abd/ext/flex c/ band to HEP. Condense HEP. LAQ baldo again if needed. R knee: knee mobilizations, STM, HS stretch, quad stretch, TFL stretch, TKE with band, side steps vs hip abd/ext standing, partial squat L shoulder: cervical spine baldo, retraction, scapular mobilizations, GHJ mobilizations, STM, periscapular activation, TS rot and ext
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
--- NOTE | 2024-06-19 14:29 | PT.OTN ---
Current Diagnoses Osteoarthritis of knee, unspecified (06/19/24) Unspecified osteoarthritis, unspecified site (06/19/24) Pain in left shoulder (06/19/24) Pain in right knee (06/19/24) Stiffness of left shoulder, not elsewhere classified (06/19/24) Stiffness of right knee, not elsewhere classified (06/19/24) Difficulty in walking, not elsewhere classified (06/19/24) Other abnormalities of gait and mobility (06/19/24) Weakness (06/19/24) Physical Therapy Treatment Note PT-OP-A Visit Information Start: 05/15/24 15:54 Freq: Status: Active Protocol: Document 06/19/24 13:43 NM (Rec: 06/19/24 14:29 NM [id number]) Out-Patient Physical Therapy Visit Information Visit Information Visit Type Discharge Summary Visit Start Time 13:45 Visit Stop Time 14:25 Visit Number 8 Evaluation Information Evaluation Date 05/18/24 Precautions Precautions osteopenia PT-OP-B Current Condition Start: 05/15/24 15:54 Freq: Status: Active Protocol: Document 05/18/24 09:46 NM (Rec: 05/18/24 11:15 NM [id number]) Current Condition History of Current Condition Onset Date March 2024 Current Complaints pain in R knee History of Current Condition Pt reports that she woke up after Wendy with L shoulder pain and R knee pain. Reports got the flu on day; reports pain worse with illness but has improved overall since no longer sick. Minimal knee pain prior to illness in March. She reports that she has less pain with L shoulder with exercise, better. She does report that tingling/numbness from shoulder into her hand, specifically her thumb and the 2nd figner. Gets in bed sleeping, usually on L shoulder. No changes to temperature or sensation, or strength. Hx of L frozen shoulder (2009); no other injuries or recurrences since that episode. Pt reports that she always gets a tingling in that L shoulder after illness/shot since she had frozen shoulder. Occasional neck pain, headaches. She reports R knee hurts as well States that it will occasionally locks or feels like it stiffens (denies catching, locking without being able to move knee, or knee giving out), worse with sitting for long time or inactivity. Since started limping, she reports that her R hip starts to hurt too. Walks 1 mi ea morning and evening. Has been wearing a patellar brace but unsure if she should; she has hx of patellar pain on same side since 2013 (with hula). Trouble with carrying heavy things (15-20#), getting up/ off floor, kneeling, getting in/out of car. Worse in morning then late evening. No numbness/tingling. Treatment Goals Patient/Caregiver Goals pt more concerned about knee/ shoulder PT-OP-C Subjective Start: 05/15/24 15:54 Freq: Status: Active Protocol: Document 06/19/24 13:43 NM (Rec: 06/19/24 14:29 NM [id number]) OP-PT Subjective Patient Comments Patient Comments Pt reports much better sleeping, states less pain at night with pillow. Knee only hurts 20% of the time. She has been taping her knee. PT-OP-E Functional Tests Start: 05/15/24 15:54 Freq: Status: Active Protocol: Document 05/18/24 09:46 NM (Rec: 05/18/24 11:15 NM [id number]) Functional Tests Apley's Scratch Test Action 1- Left post cuff Action 1- Right post cuff Action 2- Left T5 Action 2- Right T4 Action 3- Left T8 Action 3- Right T8 Five Times Sit to Stand Test Score 14 Comments inc knee pain with reps PT-OP-F Manual Assessment Start: 05/15/24 15:54 Freq: Status: Active Protocol: Document 05/18/24 09:46 NM (Rec: 05/18/24 11:15 NM [id number]) Manual Assessments Soft Tissue Assessment Soft Tissue Mobility Assessment Restrictions of cervicothoracic paraspinals, pec, rotator cuff, periscapulars Restrictions of R adductors, quad, hip flexors, and hamstrings Joint Mobility Assessment Joint Mobility Assessment L shoulder: AROM and PROM similar, limitations at scapular and GHJ. cervical spine restrictions on L side likely also reduce muscle length R knee: decreased patellar mobility compared to contralateral limb, pain with flex<>ext transition, no pain with overpressure into extension but mildly painful overpressure into flexion PT-OP-G Mobility & Gait Start: 05/15/24 15:54 Freq: Status: Active Protocol: Document 05/18/24 09:46 NM (Rec: 05/18/24 11:15 NM [id number]) OP Gait Assessment Gait Gait Assistance Required: Independent Distance (Feet) 150 Assistive Devices Assistive Device None Gait Deviations General Gait Pattern Antalgic Comments Gait Comments decreased trunk rotation. slight limp with R stance PT-OP-J Posture/Palpation/Skin Start: 05/15/24 15:54 Freq: Status: Active Protocol: Document 05/18/24 09:46 NM (Rec: 05/18/24 11:15 NM [id number]) Posture Evaluation Position Standing Head/C-Spine Posture Forward Head Shoulder Posture (L) Rounded,(R) Rounded,(L) Forward,(R) Forward Scapula Posture (L) Retracted,(L) Elevated Pelvis Posture Anteriorly Tilted Weight Distribution Weight Shifted Left Hip Posture (L) Externally Rotated,(R) Externally Rotated Knee Posture (L) Genu Valgus,(R) Genu Valgus Palpation Assessment Location L shoulder Palpation Details tenderness along L scapular border tightness and restriction of periscapulars, levator scapula , trapezius, pec, posterior cuff R knee Palpation Details Tenderness along medial joint line, medial knee above and below joint line, distal adductors no tenderness along pes anserine, patellar or quad tendon, patella mild tenderness along posterior hip near SIJ PT-OP-K Range of Motion Start: 05/15/24 15:54 Freq: Status: Active Protocol: Document 06/19/24 13:43 NM (Rec: 06/19/24 14:29 NM [id number]) Knee Goniometric Range of Motion Knee Right Flexion Active (degrees) 130 Extension Active (degrees) 0 Comments IE: pain with flex and ext 06/19/24: no pain Left Flexion Active (degrees) 130 Extension Active (degrees) 2 PT-OP-L Special Tests Start: 05/15/24 15:54 Freq: Status: Active Protocol: Document 05/18/24 09:46 NM (Rec: 05/18/24 11:15 NM [id number]) Special Tests Cervical Spine Special Tests Traction Test Results - Spurling's Test Test Results - Knee Special Tests Patellar Grind Test Test Results + Lauryn's Test Results - Alisa Test Test Results - Varus Test Results - Comments 0 and 25 deg Valgus Test Results - Comments 0 and 25 deg Neural Special Tests- Upper Body Upper Limb Tension Test Test Results + Comments median n. PT-OP-M Strength Start: 05/15/24 15:54 Freq: Status: Active Protocol: Document 06/19/24 13:43 NM (Rec: 06/19/24 14:29 NM [id number]) Hip Strength Hip Manual Muscle Testing Right Flexion (L2) 4+ Good+ Extension (S1) 4 Good Abduction 4+ Good+ Adduction 4 Good Left Flexion (L2) 4+ Good+ Extension (S1) 4 Good Abduction 4 Good Adduction 4+ Good+ Knee Strength Knee Manual Muscle Testing Right Flexion (S2) 4+ Good+ Extension (L3) 4+ Good+ Comments pain with resisted ext and flex Left Flexion (S2) 4+ Good+ Extension (L3) 4+ Good+ PT-OP-Q Treatments Start: 05/15/24 15:54 Freq: Status: Active Protocol: Document 06/19/24 13:43 NM (Rec: 06/19/24 14:29 NM [id number]) Therapeutic Exercises Supine Exercises hamstring stretch Side bilateral Resistance gait belt Reps/Minutes 60 ea mahamed stretch Supine Exercise Name HEP- modified Side bilateral Reps/Minutes 60 ea Comments good stretch; edu to perform off end of bed vs EOB Sitting Exercises LAQ Side bilateral Resistance level 2 band at ankles Reps/Minutes 15x5 hold Standing Exercises hip 3 way Standing Exercise Name banded at ankles Side bilateral Resistance level 2 band at ankles Equipment Used no UE support Reps/Minutes 10 ea Comments good form; good love to progression lunges Side bilateral Resistance 1 hand support at //bar Equipment Used foam under knee (does not flex enough to reach) Reps/Minutes 10 Comments cued neutral foot position, no knee pain Neuro Re-Education Treatment Balance Activities dynamic stepping Details SBA Surface added HEP c/ handouts- edu to be close to stable surface if needed Reps/Duration 2 sets x 15 ft ea Comments 1. heel walk 2. toe walk 3. tandem stepping fwd 4. tandem stepping bwd Min-no UE support to steady tandem Reps/Duration 60 ea Comments no UE support SLS Surface stable Reps/Duration 2x30 ea Comments prn hand support sharmila on LLE Self-Care/Home Management Treatment Education Other Education Provided level 4 band for progression and written instructions for progression Given handout for [facility] class for balance PT-OP-T Assessment and Plan Start: 05/15/24 15:54 Freq: Status: Active Protocol: Document 06/19/24 13:43 NM (Rec: 06/19/24 14:29 NM [id number]) Physical Therapy Assessment Goals Four Impairment limitations in L shoulder flexion AROM 150 deg, CS rot L 45 deg Short Term Goal (STG) Pt will increase L shoulder flexion >150 deg AROM in order to improve ability to reach, lift, and carry objects during ADLs. STG Duration 07/03/24 Client Technical Specialist Goal (LTG) If appropriate, pt will increase B cervical spine rotation >55 deg in order to improve visual scanning for driving and decreased soft tissue limitations for L shoulder ROM 06/03/24: 80 deg R, 65 deg L; no pain with driving 06/19/24: LTG Duration 07/17/24 Three Impairment pain with squats, STS, kneeling, floor transfers Short Term Goal (STG) Pt will increase R knee strength globally to at least 4/5 MMT and R hip strength globally ot 4+5/MMT to improve ability to perform transfers 07/20/24: 4 to 4+/5 for ALL STG Duration 07/03/24 MET Client Technical Specialist Goal (LTG) Pt will report <3/10 R knee pain with floor transfers with or without UE assist and/or kneeling in order to be able to perform housework 06/03/24: lunges initiated today, in addition to kneeling education c/ towel roll and cushion under knee 06/10/24: able to perform floor transfers, several reps, with and without UE assistance. LTG Duration 07/17/24 MET Two Impairment pain with ambulation; limitations in R knee/hip strength Client Technical Specialist Goal (LTG) Pt will be able to ambulate daily with R knee pain <3/10 with minimal deviations 06/03/24: pt reports no pain with ambulation, no limitations due to distance LTG Duration 07/17/24 MET One Impairment R knee ROM limited: 122 deg flex, lacking 5 deg ext Longterm Goal (LTG) Pt will increase R knee flexion AROM >125 deg and R knee extension to lacking 2 deg or less in order to improve ROM for transfers and gait 06/03/24: 135 deg flex, 0 deg extension LTG Duration 07/17/24 MET Progress Towards Goals Progress Comments Goals met Assessment Summary Assessment Pt continues to respond well to progressions with therapeutic exercise. Session emphasis on establishing HEP maintenance program for carryover and continued strengthening. Continues to demo good form and maintained ROM in R knee. Cued for control prn with exercises to maintain balance. Good tolerance for balance additions. Minimal UE support needed to steady. Physical Therapy Plan Frequency and Duration Frequency of Treatment 2x/Week Duration of treatment (weeks) 8 Plan of Care Start Date 05/18/24 Plan of Care End Date 07/17/24 Therapeutic Interventions Therapeutic Interventions Balance Training,Canalithic Repositioning,Gait Training, Home Exercise Program,Joint Mobilizations,Manual Therapy, Neuromuscular Re-education, Orthotic/Prosthetic Management ,Patient/Caregiver Education, Self-Care/Home Management, Sensory Integration,Soft Tissue Mobilization,Taping, Therapeutic Activities, Therapeutic Exercises, Vestibular Rehabilitation Modalities Cold Pack/Ice Massage,Electric Stimulation,Hot Packs, Ultrasound,Vasopneumatic Devices Other Therapeutic Interventions No grade IV mobilizations due to osteopenia Discharge Physical Therapy Discharge Reasons Goals Met Discharge Comments All goals met. Pt progressing well. Reports improvement in sleep, ADL tolerance, and mobility; less pain reported in R knee with all mobility. Demos improvements in strength as well. Pt compliant with HEP. Pt and PT discussed discharge to maintenance program for continued strengthening and symptom management, 3x/wk. PT also educated pt on follow up with PCP or for referral to ortho if pain symptoms return, change, or worsen. Pt verbalizes understanding and will be discharged to maintenance program. Next Visit Focus/Plan Next Note Type Discharge Summary Next Visit Plan discharge from PT
== END 2024-06-29 10:39 | disposition home or self-care (01) ==
LOC: PHYS 13:45
PROVIDERS: Family Provider Student in an Organized Health Care Education/Training Program; PCP Student in an Organized Health Care Education/Training Program; Referring Provider Student in an Organized Health Care Education/Training Program; Visit Provider Student in an Organized Health Care Education/Training Program
DX: M19.90 Unspecified osteoarthritis, unspecified site (principal); M25.561 Pain in right knee; M25.512 Pain in left shoulder; M17.9 Osteoarthritis of knee, unspecified; M25.612 Stiffness of left shoulder, not elsewhere classified; M25.661 Stiffness of right knee, not elsewhere classified; R53.1 Weakness; R26.89 Other abnormalities of gait and mobility; R26.2 Difficulty in walking, not elsewhere classified
CPT/HCPCS: 97110; 97112; 97140; 97161; 97530

== ENCOUNTER → 2024-10-26 09:59 | Outpatient (CLI) | payer MEDICARE, SELFPAY ==
[2024-10-26 11:17] LABS: Add Manual Diff / Slide Review NO; Hematocrit 40.2 % (36-46); Hemoglobin 13.6 g/dL (12.0-16.0); Lymphocytes Absolute Auto 1700 /uL (1100-4500); Mean Corpuscular HGB Conc 33.9 % (30-36); Mean Corpuscular Hemoglobin 31.5 PG (26-34); Mean Corpuscular Volume 93.0 fL (80-100); Platelet Count 249 X10^3/uL (150-400)
[2024-10-26 11:38] LABS: Hemoglobin A1C% w Est Avg Glu 5.5 % (4.0-6.0)
[2024-10-26 11:41] LABS: Alanine Aminotransferase 14 IU/L (<35); Albumin 4.6 g/dL (3.5-5.0); Albumin Globulin Ratio 1.5 (1.0-2.8); Alkaline Phosphatase 57 U/L (38-126); Blood Urea Nitrogen 16 mg/dL (7-17); Calcium 10.4 mg/dL (8.4-10.2); Carbon Dioxide 24 mmol/L (22-32); Chloride 104 mmol/L (98-107); Cholesterol 259 mg/dL (140-199); Estimated Glomerular Filt Rate > 60 mL/min (>60); Globulin 3.1 g/dL (1.7-4.1); Glucose 90 mg/dL (70-99); HDL Cholesterol 50 mg/dL (40-60); HEMOLYSIS < 15 (0-50); Potassium 4.0 mmol/L (3.4-5.1); Sodium 136 mmol/L (137-145); Total Protein 7.7 g/dL (6.3-8.2); Triglycerides 154 mg/dL (35-150)
[2024-10-26 11:57] LABS: Vitamin D 25 Hydroxy (D3) 50.6 ng/mL (30.0-100.0)
[2024-10-26 12:02] LABS: Free T3, Triiodothyronine Free 3.25 pg/mL (2.77-5.27); Free T4, Direct Thyroxine 1.37 ng/dL (0.78-2.19)
[2024-10-26 12:15] LABS: Thyroid Stimulating Hormone 2.22 uIU/mL (0.47-4.68)
[2024-10-27 21:08] LABS: SS A Ro Sjogrens Antibody < 0.2 AI (0.0-0.9); SS B La Sjogrens Antibody < 0.2 AI (0.0-0.9)
== END ==
PROVIDERS: Family Provider Student in an Organized Health Care Education/Training Program; PCP Student in an Organized Health Care Education/Training Program; Referring Provider Student in an Organized Health Care Education/Training Program; Visit Provider Student in an Organized Health Care Education/Training Program
DX: R73.03 Prediabetes (principal); E03.9 Hypothyroidism, unspecified; M81.0 Age-related osteoporosis without current pathological fracture; Z82.61 Family history of arthritis; E78.00 Pure hypercholesterolemia, unspecified; R68.2 Dry mouth, unspecified
CPT/HCPCS: 36415; 80053; 80061; 82306; 83036; 84439; 84443; 84481; 85025; 85651; 86140; 86235; 86430

== ENCOUNTER → 2024-10-26 | Outpatient (CLI) | payer MEDICARE, SELFPAY ==
--- NOTE | 2024-10-26 14:08 | DI.RAD.S_ITS ---
PROCEDURE: XR DEXA AXIAL SKELETON INDICATIONS: Osteoporosis COMPARISON: [facility], , XR DEXA AXIAL SKELETON, 05/03/2023, 13:17. FINDINGS: Lumbar Spine: Bone mineral density 1.019 (previously 0.999) g/cm2, T score -0.3 (previously -0.4). Left Femoral Neck: Bone mineral density 0.635 (previously 0.676) g/cm2, T score -1.9 (previously -1.6). Left Hip: Bone mineral density 0.807 (previously 0.833) g/cm2, T score -1.1 (previously -0.9). Fracture Risk Calculation (when applicable): 10-year fracture risk of a major osteoporotic fracture 12 percent and of a hip fracture 4.8 percent. (T score greater or equal to -1.0 to: NORMAL) (T score from -1.1 to -2.4: OSTEOPENIA) (T score less than or equal to -2.5: OSTEOPOROSIS) IMPRESSION: Osteopenia Follow-up guidelines as follows: Osteoporosis: Consider a repeat DEXA and Vertebral Fracture Assessment (VFA) exam in 2 years or sooner if medically necessary, to reassess this patient's status. Osteopenia: Consider a repeat DEXA in 2-3 years to reassess this patient's status, or if there is a new clinical indication. Normal: Consider a repeat DEXA in 5 years or sooner, or if there is a new clinical indication. All treatment decisions require clinical judgment and consideration of individual patient factors, including patient preferences, comorbidities, previous drug use, risk factors not captured in the FRAX model (e.g., frailty, falls, vitamin D deficiency, increased bone turnover, interval significant decline in bone density ) and possible under- or over-estimation of fracture risk by FRAX. In addition, the NOF Guide recommends that FDA-approved medical therapies be considered in postmenopausal women and men age >= 50 years with a: * Hip or vertebral (clinical or morphometric) fracture * T-score of <=-2.5 at the spine or hip * Ten-year fracture probability by FRAX of >= 3% for hip fracture or >=20% for major osteoporotic fracture. Dictated by: Ricco Mir M.D. on 10/30/2024 at 10:30 Approved by: Ricco Mir M.D. on 10/30/2024 at 10:33
== END ==
LOC: RAD 14:06
PROVIDERS: Family Provider Student in an Organized Health Care Education/Training Program; PCP Student in an Organized Health Care Education/Training Program; Referring Provider Student in an Organized Health Care Education/Training Program; Visit Provider Student in an Organized Health Care Education/Training Program
DX: M81.0 Age-related osteoporosis without current pathological fracture (principal); R73.03 Prediabetes; E03.9 Hypothyroidism, unspecified; E78.00 Pure hypercholesterolemia, unspecified; R68.2 Dry mouth, unspecified; Z82.61 Family history of arthritis
CPT/HCPCS: 36415; 77080; 80053; 80061; 82306; 83036; 84439; 84443; 84481; 85025; 85651; 86140; 86235; 86430

== ENCOUNTER 2024-12-29 11:45 | Emergency (ER) | payer MEDICARE, SELFPAY ==
[2024-12-29 12:15] VITALS: BP 121/80; PULSE 82; RESP 16; TEMP 36.3; O2SAT 98; BMI 25.6
--- NOTE | 2024-12-29 12:24 | ED_ITS ---
<Statement entered by Black Gr, - 12/29/24 15:12> Dr. Gr: I was immediately available in the department for consultation. I did not actually see the patient. HPI - Extremity Problem General Chief complaint: Extremity Problem,Nontraumatic Stated complaint: Left neck pain down in to upper arm since Time Seen by Provider: 12/29/24 12:23 Source: patient Mode of arrival: Family Vehicle History of Present Illness HPI Narrative: Ms. Najera is a very pleasant 74-year-old female with a past medical history of hypothyroidism, GERD, prediabetes on metformin, osteoarthritis, prior left frozen shoulder who presents to the emergency department for left-sided neck pain radiating into the left upper arm x 1 week. Patient denies any trauma but reports that when she woke up 1 morning she was having pain on her left trapezius region radiating to the left upper arm. This pain is exacerbated by standing and is alleviated by lying flat. No weakness of the left arm, however she does occasionally have some tingling in the left hand region if she leans on the arm. She does still have full range of motion of the left shoulder but with discomfort. She has been taking meloxicam without relief in her symptoms. Ice does temporarily help. Denies chest pain, shortness of breath, fevers, chills, diaphoresis, or weakness of the upper extremity. Related Data Home Medications ?Medication ?Instructions ?Recorded ?Confirmed levothyroxine 75 mcg tablet 75 mcg PO DAILY Hypothyroi dism 10/02/24 12/29/24 metformin 500 mg tablet,extended 500 mg PO DAILY Pre D iabetes 10/02/24 12/29/24 release 24 hr pantoprazole 40 mg tablet,delayed mg PO GERD 10/02/24 12/29/24 release sumatriptan succinate 50 mg tablet 50 mg PO Migraine 0 10/02/24 12/29/24 Previous Rx's ?Medication ?Instructions ?Recorded meloxicam 7.5 mg tablet 7.5 mg PO DAILY #90 tabs 05/02 hydrocodone 2.5 mg-acetaminophen 1 tab PO Q4-6H PRN pa in #10 tabs 12/29/24 325 mg tablet lidocaine 5 % topical patch 1 patch topical DAILY #30 ea 12/29/24 (Lidoderm) prednisone 20 mg tablet 20 mg PO DAILY 4 days #4 tab s 12/29/24 Allergies Allergy/AdvReac Type Severity Reaction Status Date / Time monosodium glutamate Allergy Unknown Verified 12/29/24 12:18 Review of Systems Review of Systems ROS Unobtainable: All systems reviewed & are unremarkable except as noted in HPI and below Patient History Medical History Primary osteoarthritis of right knee Sterilization Family History Father Graves disease Stroke Social History marital status: number of children: 2 household members: none lives independently: Yes caregiver/support person: No housing: house pets and animals: No education level: high school occupational status: other current occupational exposures/hazards: No 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 jay/muslim: [employer] special jay needs: No travel history: recent leisure activities: exercise other: Sewing, Crocheting, gardening & others crafts seatbelt use: always water heater temp set < 120 deg: Yes working smoke detector in home: Yes fire extinguisher in home: Yes carbon monox detector in home: Yes firearms in home: No do you feel safe at home: Yes second hand exposure: Yes alcohol intake: never substance use type: prescription drug during the past year weight has: remained stable well-balanced diet: about half the time daily servings fruits/ve-4 caffeine: Yes eating out: 1-3 times/week Type(s) of exercise: walking and occasional exercise frequency: 5-6 times per week duration: 15-30 minutes/day Exam Narrative Exam Narrative: GENERAL: 74 year old patient appears stated age. Well-developed patient, in no acute distress. HEAD: Atraumatic. Normocephalic. EYES: No scleral icterus. No injection or drainage. NECK: Trachea midline. Cervical ROM intact. No midline or paracervical tenderness. CARDIOVASCULAR: Regular rate and rhythm. RESPIRATORY: ?Nonlabored respirations. ?Speaking in clear, full sentences. ?Rufina r to auscultation. EXTREMITIES: No upper extremity edema or color change bilaterally. 2+ radial pulses bilaterally, sensation and strength intact in the distribution of the median, ulnar, radial nerves bilaterally. Patient does have focal tenderness to palpation of the left superior trapezius muscle. She is able to abduct both arms to 180? but with pain reported in the left deltoid region. BACK: Nontender NEURO: AOx3. ?Clear speech. ?Moves all 4 extremities appropriately. SKIN: No rash or erythema of visible areas Initial Vital Signs Initial Vital Signs: Vital Signs Temperature 97.3 F L 12/29/24 12:15 Pulse Rate 82 12/29/24 12:15 Respiratory Rate 16 12/29/24 12:15 Blood Pressure 121/80 12/29/24 12:15 Pulse Oximetry 98 12/29/24 12:15 Oxygen Delivery Method Room Air 12/29/24 12:15 Course Orders Ordered: ED Orders 12/29/24 12:23 CT cervical spine wo con Stat XR shoulder LT 2+ views Stat Discontinued Medications Acetaminophen (Acetaminophen 325 Mg Tablet) 975 mg PO NOW ONE Stop: 12/29/24 12:24 Last Admin: 12/29/24 12:40 Dose: 975 mg Lidocaine (Lidocaine 5% Patch) 1 each TOP NOW ONE Stop: 12/29/24 12:24 Last Admin: 12/29/24 12:42 Dose: 1 each Prednisone (Prednisone 20 Mg Tablet) 40 mg PO NOW ONE Stop: 12/29/24 12:31 Last Admin: 12/29/24 12:41 Dose: 40 mg Vital Signs Vital signs: Vital Signs - 8 hr 12/29/24 12:15 12/29/24 13:47 Temperature 97.3 F L 98.1 F Pulse Rate 82 89 Respiratory Rate 16 18 Blood Pressure 121/80 123/78 Pulse Oximetry 98 96 Oxygen Delivery Method Room Air Room Air MDM - Extremity (Nontraumatic) Imaging Data CT - cervical spine: Radiologist's Impression: PROCEDURE: CT CERVICAL SPINE WO CON INDICATIONS: concern Left cervical radiculopathy TECHNIQUE: Noncontrast 3 mm thick sections acquired from the skull base to the T4 level. Sagittal and coronal reformats were then constructed. For radiation dose reduction, the following was used: automated exposure control, adjustment of mA and/or kV according to patient size. COMPARISON: None. FINDINGS: Image quality: Excellent. Bones: No fractures or dislocations. Visualized superior ribs are intact. Mild spinal canal stenosis at C5-6 due to a degenerate disc osteophyte complex. Moderate right neural foraminal stenosis due to uncovertebral and facet arthrosis at C5-6. Soft tissues: Prevertebral soft tissues are normal in thickness. No paravertebral hematomas. No apical pneumothoraces. IMPRESSION: No displaced fracture or traumatic subluxation. Mild spinal canal stenosis and moderate right neural foraminal stenosis at C5-6. Dictated by: Sunday Santamaria M.D. on 12/29/2024 at 12:47 Approved by: Sunday Santamaira M.D. on 12/29/2024 at 12:48 Left Shoulder XR: Radiologist's Impression: PROCEDURE: XR SHOULDER LT MIN 2V INDICATIONS: nontraumatic pain TECHNIQUE: 3 views of the shoulder were acquired. COMPARISON: [facility], , XR SHOULDER LT MIN 2V, 04/22/2024, 13:42. FINDINGS: Bones: No fractures or dislocations. [id number] acromioclavicular joint and glenohumeral joint osteoarthritic changes are seen. No suspicious bony lesions. Visualized ribs appear intact. Soft tissues: No suspicious soft tissue calcifications. IMPRESSION: No acute left shoulder fracture or dislocation. [id number] left shoulder joint osteoarthritis. No gross soft tissue abnormalities. Dictated by: Huan Aaron M.D. on 12/29/2024 at 12:57 Approved by: Huan Aaron M.D. on 12/29/2024 at 12:58 MDM Narrative Medical decision making narrative: 74-year-old female with a past medical history of hypothyroidism, GERD, prediabetes on metformin, osteoarthritis, prior left frozen shoulder who presents to the emergency department for left-sided neck pain radiating into the left upper arm x 1 week. Differential diagnosis includes but is not limited to cervical radiculopathy, trapezius muscle spasm, frozen shoulder, rotator cuff tear, impingement syndrome, calcific tendinitis, adhesive capsulitis, biceps tendinitis, subacromial bursitis, etc. On exam patient is in no acute distress, nontoxic-appearing, all vital signs within normal limits. She has been experiencing left-sided neck/shoulder/upper arm pain for the last week, nontraumatic, started when she woke up. She is tender to palpation of the left superior trapezius, pain is worse with range of motion but she does still have full intact range of motion, 2+ radial pulses bilaterally, sensation and strength intact in both arms. She does have history of rheumatoid arthritis but is currently undergoing further evaluation. We will obtain CT cervical spine for concern of cervical radiculopathy in addition to left shoulder x-ray, we will treat pain with Tylenol, Lidoderm, prednisone at this time as patient is already taking meloxicam and drove herself to the ER. Left shoulder x-ray reveals no acute fracture or dislocation, there is [id number] left shoulder joint osteoarthritis. Cervical spine CT reveals no displaced fracture or traumatic subluxation, there is mild spinal canal stenosis and moderate right neural foraminal stenosis C5-C6. Printed and discussed results with the patient. She is feeling better, is interested in a prescription for the Lidoderm, we will also do low dose, 20 mg prednisone for 4 additional days, discussed that this can raise blood sugar and she should increase hydration and decreased carbohydrate/sugar in the diet while taking a steroid. We will also send short course of hydrocodone to use for severe breakthrough pain, discussed risks of narcotics. Recommended patient follow up with PCP for further evaluation, possible referral to Orthopedics/physical therapy. Discussed strict ER return precautions including but not limited to arm weakness, swelling, redness, fevers, severe pain, any other concerns. Patient verbalized understanding of all information agreeable with the plan. She is neurovascularly intact ambualtory and stable for discharge home. Discharge Plan Departure Patient Disposition: Home Clinical Impression: DDD (degenerative disc disease), cervical Osteoarthritis of left shoulder Qualifiers: Osteoarthritis type: unspecified Qualified Code(s): M19.012 - Primary osteoarthritis, left shoulder Instructions: DI for Cervical Radiculopathy Activity Restrictions/Additional Instructions: Dear Reinaldo, Thank you for coming to the emergency department. Today you were evaluated for pain in your left shoulder and upper arm region. X-ray of your shoulder did reveal osteoarthritis, and CT scan of your cervical spine did reveal cervical degenerative disc disease which is actually worse on the right side. You have been prescribed a low-dose steroid in addition to topical numbing patches to help. Please increase water/hydration and decrease sugar/carbohydrates in your diet while taking a steroid as it can increase your sugar. Please rest, use ice and/or heat therapy on the neck/shoulder, use [id number] Tylenol to help with the pain in addition to your regular meloxicam. Please follow up with your PCP as they may refer you to specialist employee labor relations or physical therapy which can be helpful. Massage therapy can also be helpful. The pulses in both of your arms are equal and you have no arm swelling or discoloration concerning for a blood clot at this time. Please, return to the emergency department if develop any new or worsening symptoms, swelling of the arm, color change, temperature change, weakness, fevers or any other concerns. As we discussed, I have sent you a low dose of hydrocodone to your pharmacy which is an opiate pain medication. Please use this for severe breakthrough pain only. If one, 2.5mg pill does not help, you can take two pills (5mg of hydrocodone). You have been prescribed a short course of narcotic medications. These are potentially dangerous and addictive medications that should be used carefully. While on these medications you cannot drive or operate heavy machinery. Additionally, you cannot sign legal documents or perform any duties such as this. 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 Please understand that we cannot provide further refills of narcotics or controlled substances through the ED and your pain management will need to be through your Primary Care Provider Please follow up with your primary care doctor within the next 2-3 days for ER follow-up. (If you do not have a PCP you can call [phone]. ?to schedule an appointment with an [facility] Primary Care Provider) IF YOU DEVELOP ANY NEW OR WORSENING SYMPTOMS, RETURN TO THE ER! Please read the attached instructions, they highlight more specific treatments and interventions for you at home. Thank you for letting me participate in your care, Zenaida Moreno PA-C Prescriptions: New lidocaine [Lidoderm] 5 % adhesive patch,medicated 1 patch topical DAILY Qty: 30 0RF Rx Instructions: leave on most painful area for up to 12 hrs prednisone 20 mg tablet 20 mg PO DAILY 4 Days Qty: 4 0RF Rx Instructions: Begin 12/30/24 with breakfast hydrocodone-acetaminophen 2.5-325 mg tablet 1 tab PO Q4-6H PRN (Reason: pain) Qty: 10 0RF No Action sumatriptan succinate 50 mg tablet 50 mg PO Patient Comments: prn levothyroxine 75 mcg tablet 75 mcg PO DAILY pantoprazole 40 mg tablet,delayed release (DR/EC) PO metformin 500 mg tablet extended release 24 hr 500 mg PO DAILY meloxicam 7.5 mg tablet 7.5 mg PO DAILY Qty: 90 3RF Referrals: Radha Pretty MD [Primary Care Provider, Family Practice] Stand Alone Forms: Patient Portal/API
[2024-12-29] MEDS: ACETAMINOPHEN 325 MG TABLET 975 MG PO (12:40)
[2024-12-29] MEDS: LIDOCAINE 5% PATCH 1 EACH TOP (12:42)
[2024-12-29 13:47] VITALS: BP 123/78; PULSE 89; RESP 18; TEMP 36.7; O2SAT 96
== END 2024-12-29 13:49 | disposition home or self-care (01) ==
PROVIDERS: Emergency Provider Physician Assistant; PCP Student in an Organized Health Care Education/Training Program
DX: M50.322 Other cervical disc degeneration at C5-C6 level (principal); M19.012 Primary osteoarthritis, left shoulder
CPT/HCPCS: 72125; 73030; 99284

== ENCOUNTER → 2025-01-08 15:34 | Outpatient (CLI) | payer MEDICARE, SELFPAY ==
--- NOTE | 2025-01-08 15:35 | DI.MRI.S_ITS ---
PROCEDURE: MR SHOULDER LT WO CON INDICATIONS: Acute left shoulder pain TECHNIQUE: Noncontrast oblique coronal T2 fast spin echo with fat saturation, oblique sagittal T1 spin echo and T2 fast spin echo with fat saturation, axial T1 spin echo and T2 fast spin echo with fat saturation through the shoulder. COMPARISON: [facility], CR, XR SHOULDER LT 2+ VIEWS, 12/29/2024, 12:37. FINDINGS: Quality: Adequate. Tendons: Rotator cuff tendons: Less than 50 percent thickness articular sided insertional tear of the infraspinatus tendon. Subscapularis, supraspinatus and infraspinatus tendons are intact. Long head of biceps tendon: Intact. No dislocation. Muscles: No disproportionate fatty degeneration of the rotator cuff musculature. Acromioclavicular joint: Moderate acromioclavicular osteoarthritis. Glenohumeral joint: Labrum: Unremarkable. Cartilage: No focal defect. Fluid: No effusion. Capsule: No pericapsular inflammation or scarring. Alignment: No dislocation. Bursa: Subacromial/subdeltoid bursa: Nondistended. Subcoracoid bursa: Nondistended. Bones: No fracture. IMPRESSION: Intermediate-grade partial-thickness articular sided infraspinatus tendon tear. Dictated by: Sawyer Argueta M.D. on 01/11/2025 at 16:09 Approved by: Sawyer Argueta M.D. on 01/11/2025 at 16:13
== END ==
LOC: MRI 15:35
PROVIDERS: PCP Student in an Organized Health Care Education/Training Program; Referring Provider Student in an Organized Health Care Education/Training Program; Visit Provider Student in an Organized Health Care Education/Training Program
DX: M75.112 Incomplete rotator cuff tear or rupture of left shoulder, not specified as traumatic (principal); M19.012 Primary osteoarthritis, left shoulder; M25.512 Pain in left shoulder
CPT/HCPCS: 73221